=== PATIENT | male | born 1950 | race Caucasian/White ===

== ENCOUNTER 2017-06-23 07:46 | Outpatient (CLI) | payer MEDICARE, OTHER ==
[2017-06-23 13:58] LABS: BASOPHILS # (AUTO) 0.1 10^3/uL (0.0-0.1); EOSINOPHILS # (AUTO) 0.2 10^3/uL (0.0-0.7); EOSINOPHILS % (AUTO) 3.8 %; HCT - HEMATOCRIT 45.7 % (42.0-52.0); HGB - HEMOGLOBIN 15.4 g/dL (14.0-18.0); LYMPHOCYTES # (AUTO) 1.5 10^3/uL (1.5-3.5); LYMPHOCYTES % (AUTO) 22.6 %; MEAN CORPUSCULAR HEMOGLOBIN 30.1 pg (27.0-31.0); MEAN CORPUSCULAR HGB CONC 33.6 g/dL (32.0-36.0); MEAN CORPUSCULAR VOLUME 89.6 fL (80.0-94.0); MEAN PLATELET VOLUME 8.2 fL (7.4-11.4); MONOCYTES # (AUTO) 0.7 10^3/uL (0.0-1.0); MONOCYTES % (AUTO) 10.1 %; NEUTROPHILS # (AUTO) 4.1 10^3/uL (1.5-6.6); NEUTROPHILS % (AUTO) 62.5 %; RED CELL DISTRIBUTION WIDTH 13.3 % (12.0-15.0); UNCORRECTED WHITE BLOOD COUNT 6.5 x10^3/uL; WHITE BLOOD COUNT 6.5 x10^3/uL (4.8-10.8)
[2017-06-23 14:27] LABS: ALBUMIN/GLOBULIN RATIO 1.2 (1.0-2.2); BILIRUBIN,TOTAL 0.8 mg/dL (0.2-1.0); BUN - BLOOD UREA NITROGEN 13 mg/dL (6-20); CALCIUM 9.2 mg/dL (8.5-10.3); CARBON DIOXIDE - CO2 26 mmol/L (21-32); CHLORIDE 104 mmol/L (101-111); CHOL/HDL RATIO 5.7 (<5.0); CHOLESTEROL 218 mg/dL; CREATININE 0.8 mg/dL (0.6-1.2); GFR - MDRD 97 (>89); GLUCOSE 97 mg/dL (70-100); HDL CHOLESTEROL 38 mg/dL; LDL/HDL RATIO 4.1 (<3.6); POTASSIUM 3.9 mmol/L (3.5-5.0); SODIUM 137 mmol/L (135-145); TOTAL PROTEIN 7.4 g/dL (6.7-8.2); TRIGLYCERIDES 115 mg/dL; VLDL CHOLESTEROL 23 mg/dL
[2017-06-23 14:47] LABS: HEMOGLOBIN A1C 0.67 g/dL
== END 2017-06-23 07:47 | disposition home or self-care (01) ==
LOC: LAB.F 07:46
PROVIDERS: ATTEND Family Medicine
DX: Z00.00 Encounter for general adult medical examination without abnormal findings (principal); I10 Essential (primary) hypertension; R73.01 Impaired fasting glucose; E78.5 Hyperlipidemia, unspecified; R97.20 Elevated prostate specific antigen [PSA]
CPT/HCPCS: 36415; 80053; 80061; 83036; 84153; 85025

== ENCOUNTER 2017-06-27 12:42 | Outpatient (CLI) | payer MEDICARE, OTHER ==
[2017-06-27 18:30] LABS: PSA FREE 0.739 ng/mL (0.16-2.81)
[2017-06-27 18:31] LABS: PSA TOTAL 3.825 ng/mL (0.000-2.000)
== END 2017-06-27 12:43 | disposition home or self-care (01) ==
LOC: LAB.F 12:42
PROVIDERS: ATTEND Family Medicine
DX: R97.20 Elevated prostate specific antigen [PSA] (principal)
CPT/HCPCS: 36415; 84154

== ENCOUNTER 2017-08-25 10:21 | Outpatient (CLI) | payer MEDICARE, OTHER ==
[2017-08-25] MEDS ORDERED: BARIUM SULFATE 1,900 ML BOTTLE PO ONE (14:00)
[2017-08-25] MEDS ORDERED: BARIUM SULFATE 1,900 ML BOTTLE PO SCH (14:00)
--- NOTE | 2017-08-25 14:24 | XRAY Report ---
DOUBLE CONTRAST BARIUM ENEMA: 08/25/2017 CLINICAL INDICATION: Colonic polyps, history of rectal bleeding. FINDINGS: Initial marketing manager view of the abdomen demonstrates a normal bowel gas pattern. The barium enem a tip was inserted, the balloon inflated, and double contrast barium enema was performed. The patient had a difficult time retaining the balloon, but a diagnostic study was obtained. The colon is normal in caliber. No fixed polyp or colonic mass is appreciated. Colonic diverticulosis is present. The ce cum appears unremarkable. The appendix opacifies with contrast. IMPRESSION: SCATTERED DIVERTICULOSIS. NO EVIDENCE OF A POLYP OR MASS LESION. FLUOROSCOPY TIME: 8 MINUTES 47 SECONDS; 4 SPOT IMAGES OBTAINED. JOB #: [id number] EXT JOB #:[id number]
== END 2017-08-25 10:22 | disposition home or self-care (01) ==
LOC: DI 10:21
PROVIDERS: ATTEND Family Medicine
DX: K62.5 Hemorrhage of anus and rectum (principal); K57.30 Diverticulosis of large intestine without perforation or abscess without bleeding; Z86.010 Personal history of colon polyps
CPT/HCPCS: 74280; A9270

== ENCOUNTER 2018-07-31 08:07 | Outpatient (CLI) | payer MEDICARE, OTHER | END 2018-07-31 08:08 | disposition home or self-care (01) | LOC: LAB.F 08:07 | PROVIDERS: ATTEND Internal Medicine | DX: E78.5 Hyperlipidemia, unspecified (principal); N40.1 Benign prostatic hyperplasia with lower urinary tract symptoms ==

== ENCOUNTER 2018-08-06 08:04 | Outpatient (CLI) | payer MEDICARE, OTHER ==
[2018-08-06 10:57] LABS: ALBUMIN 3.9 g/dL (3.2-5.5); ALBUMIN/GLOBULIN RATIO 1.3 (1.0-2.2); ALKALINE PHOSPHATASE 49 IU/L (42-121); ALT ALANINE AMINOTRANSFERASE 29 IU/L (10-60); AST ASPARTATE AMINOTRANSFERASE 35 IU/L (10-42); BILIRUBIN,TOTAL 0.9 mg/dL (0.2-1.0); BUN - BLOOD UREA NITROGEN 12 mg/dL (6-20); CALCIUM 9.1 mg/dL (8.5-10.3); CARBON DIOXIDE - CO2 29 mmol/L (21-32); CHLORIDE 103 mmol/L (101-111); CHOL/HDL RATIO 4.6 (<5.0); CHOLESTEROL 210 mg/dL; CREATININE 0.6 mg/dL (0.6-1.2); GFR - MDRD 135 (>89); GLUCOSE 105 mg/dL (70-100); HDL CHOLESTEROL 46 mg/dL; LDL CHOLESTEROL,CALCULATED 146 mg/dL; LDL/HDL RATIO 3.2 (<3.6); SODIUM 139 mmol/L (135-145); VLDL CHOLESTEROL 18 mg/dL
== END 2018-08-06 08:05 | disposition home or self-care (01) ==
LOC: LAB.F 08:04
PROVIDERS: ATTEND Internal Medicine
DX: E78.5 Hyperlipidemia, unspecified (principal); N40.1 Benign prostatic hyperplasia with lower urinary tract symptoms
CPT/HCPCS: 36415; 80053; 80061; 83721; 84153

== ENCOUNTER 2019-06-14 08:34 | Outpatient (CLI) | payer MEDICARE, OTHER ==
[2019-06-14 17:47] LABS: PSA FREE 0.75 ng/mL (0.16-2.81)
[2019-06-14 17:48] LABS: PSA TOTAL 4.41 ng/mL (0.000-2.000)
[2019-06-14 17:59] LABS: HB2 TOTAL 15.6 g/dL; HEMOGLOBIN A1C 0.58 g/dL; HEMOGLOBIN A1C % 5.6 % (4.6-6.2)
== END 2019-06-14 08:35 | disposition home or self-care (01) ==
LOC: LAB.S 08:34
PROVIDERS: ATTEND Physician Assistant Medical
DX: R73.01 Impaired fasting glucose (principal); R97.20 Elevated prostate specific antigen [PSA]; R53.83 Other fatigue
CPT/HCPCS: 36415; 83036; 84153; 84154; 84443

== ENCOUNTER 2019-09-08 06:58 | Outpatient (CLI) | payer MEDICARE, OTHER ==
[2019-09-08 10:49] LABS: BASOPHILS # (AUTO) 0.1 10^3/uL (0.0-0.1); BASOPHILS % (AUTO) 0.9 %; EOSINOPHILS # (AUTO) 0.3 10^3/uL (0.0-0.7); EOSINOPHILS % (AUTO) 3.7 %; HGB - HEMOGLOBIN 16.3 g/dL (14.0-18.0); LYMPHOCYTES # (AUTO) 1.7 10^3/uL (1.5-3.5); LYMPHOCYTES % (AUTO) 25.4 %; MONOCYTES # (AUTO) 0.7 10^3/uL (0.0-1.0); MONOCYTES % (AUTO) 9.8 %; NEUTROPHILS # (AUTO) 4.1 10^3/uL (1.5-6.6); NEUTROPHILS % (AUTO) 59.8 %; PLT - PLATELET COUNT 314 10^3/uL (130-450); RED BLOOD COUNT 5.43 10^6/uL (4.70-6.10); RED CELL DISTRIBUTION WIDTH 12.7 % (12.0-15.0); WHITE BLOOD COUNT 6.8 x10^3/uL (4.8-10.8)
[2019-09-08 10:58] LABS: ALBUMIN 4.2 g/dL (3.2-5.5); ALBUMIN/GLOBULIN RATIO 1.3 (1.0-2.2); BILIRUBIN,TOTAL 0.9 mg/dL (0.2-1.0); CALCIUM 9.1 mg/dL (8.5-10.3); CREATININE 0.6 mg/dL (0.6-1.2); TOTAL PROTEIN 7.5 g/dL (6.7-8.2)
== END 2019-09-08 06:59 | disposition home or self-care (01) ==
LOC: LAB.S 06:58
PROVIDERS: ATTEND Physician Assistant Medical
DX: I10 Essential (primary) hypertension (principal)
CPT/HCPCS: 36415; 80053; 85025

== ENCOUNTER 2020-08-11 07:27 | Outpatient (CLI) | payer MEDICARE, OTHER ==
[2020-08-11 13:35] LABS: BASOPHILS # (AUTO) 0.1 10^3/uL (0.0-0.1); EOSINOPHILS # (AUTO) 0.3 10^3/uL (0.0-0.7); EOSINOPHILS % (AUTO) 4.9 %; HGB - HEMOGLOBIN 15.8 g/dL (14.0-18.0); LYMPHOCYTES # (AUTO) 1.7 10^3/uL (1.5-3.5); LYMPHOCYTES % (AUTO) 27.3 %; MEAN CORPUSCULAR HEMOGLOBIN 31.8 pg (27.0-31.0); MEAN CORPUSCULAR HGB CONC 33.8 g/dL (32.0-36.0); MEAN PLATELET VOLUME 9.7 fL (7.4-11.4); MONOCYTES # (AUTO) 0.6 10^3/uL (0.0-1.0); MONOCYTES % (AUTO) 9.8 %; NEUTROPHILS # (AUTO) 3.5 10^3/uL (1.5-6.6); NEUTROPHILS % (AUTO) 56.7 %; PLT - PLATELET COUNT 332 10^3/uL (130-450); RED BLOOD COUNT 4.97 10^6/uL (4.70-6.10); RED CELL DISTRIBUTION WIDTH 12.3 % (12.0-15.0); WHITE BLOOD COUNT 6.1 x10^3/uL (4.8-10.8)
[2020-08-11 13:43] LABS: ALBUMIN 4.2 g/dL (3.2-5.5); ALBUMIN/GLOBULIN RATIO 1.3 (1.0-2.2); ALKALINE PHOSPHATASE 41 IU/L (42-121); ALT ALANINE AMINOTRANSFERASE 39 IU/L (10-60); AST ASPARTATE AMINOTRANSFERASE 38 IU/L (10-42); BILIRUBIN,TOTAL 0.8 mg/dL (0.2-1.0); BUN - BLOOD UREA NITROGEN 11 mg/dL (6-20); CALCIUM 9.4 mg/dL (8.5-10.3); CARBON DIOXIDE - CO2 25 mmol/L (21-32); CHLORIDE 103 mmol/L (101-111); CHOL/HDL RATIO 4.9 (<5.0); CHOLESTEROL 221 mg/dL; CREATININE 0.7 mg/dL (0.6-1.2); GLUCOSE 108 mg/dL (70-100); HDL CHOLESTEROL 45 mg/dL; LDL CHOLESTEROL,CALCULATED 148 mg/dL; LDL/HDL RATIO 3.3 (<3.6); SODIUM 136 mmol/L (135-145); TOTAL PROTEIN 7.5 g/dL (6.7-8.2); VLDL CHOLESTEROL 28 mg/dL
== END 2020-08-11 07:28 | disposition home or self-care (01) ==
LOC: LAB.S 07:27
PROVIDERS: ATTEND Physician Assistant
DX: R73.01 Impaired fasting glucose (principal); R97.20 Elevated prostate specific antigen [PSA]; R07.89 Other chest pain; E78.5 Hyperlipidemia, unspecified; I10 Essential (primary) hypertension
CPT/HCPCS: 36415; 80053; 80061; 83721; 84153; 84443; 85025

== ENCOUNTER 2020-09-07 07:43 | Outpatient (CLI) | payer MEDICARE, OTHER ==
--- NOTE | 2020-09-07 11:31 | CARDIAC PROCEDURE NOTE ---
DATE OF SERVICE: 09/07/2020 Physician: Humaira Wood MD, [facility] INDICATION: Chest pain, family history of CAD. CARDIAC RISK FACTORS: Male gender, hypertension, elevated cholesterol, family history of heart disease, smoker, borderline diabetic. DESCRIPTION OF PROCEDURE: After signing informed consent, the patient underwent a Prateek-protocol treadmill stress test with Echo imaging at rest and post- exercise. RESTING HEART RATE: 71. PEAK HEART RATE: 152 (100% predicted maximum heart rate for age). RESTING BLOOD PRESSURE: 150/94. PEAK BLOOD PRESSURE: 205/96 (Patient did not take a morning BP med). The patient exercised for 7 minutes and 15 seconds on a Prateek-protocol treadmill stress test. He achieved a peak heart rate of 152 (100% PMHR) and 9.1 METs. The patient had no chest pain with exercise, reported mild to moderate shortness of breath at peak, and rated his perceived exertion at 16/20 on the Mavis scale at peak. Oxygen saturation was 94% to 98% on room air throughout the test. RESTING EKG: Normal sinus rhythm, left atrial enlargement, early R/S transition. EKG AT PEAK: T-wave flattening develops after 1 minute of exercise, in leads V2 and V3. Then horizontal ST depressions of 1 mm, are seen at peak in leads V2 through V4. All changes revert to baseline after 5 minutes of recovery. SUMMARY: 1. Abnormal resting EKG. 2. Fair exercise tolerance. 3. Abnormal ST segment changes and T-wave changes in the anterior leads develop and are suggestive of ischemia. 4. Echo images reported separately and showed: Normal LV wall motion at rest. LVEF 65%. After exercise, there was normal augmentation of all LV segments. IMPRESSION: Normal treadmill exercise stress test with Echo. RECOMMENDATIONS: 1. Aggressive risk-factor management: better BP control, cholesterol control, diabetic control and consider taking a baby aspirin daily. cc: Charlette Francis PA-C TD: 09/07/2020 11:14 MTDBrice
== END 2020-09-07 07:44 | disposition home or self-care (01) ==
LOC: DI 07:43
PROVIDERS: ATTEND Physician Assistant
DX: R07.9 Chest pain, unspecified (principal); R94.31 Abnormal electrocardiogram [ECG] [EKG]; Z82.49 Family history of ischemic heart disease and other diseases of the circulatory system
CPT/HCPCS: 93350

== ENCOUNTER 2021-06-13 08:00 | Outpatient (CLI) | payer MEDICARE, OTHER ==
--- NOTE | 2021-06-13 15:28 | XRAY Report ---
PROCEDURE: Tib/Fib RT INDICATIONS: CONTUSION OF RIGHT LOWER LEG TECHNIQUE: 4 views of the tibia and fibula were acquired. COMPARISON: Right knee radiographs 01/03/2014. FINDINGS: Bones: No acute fractures or dislocations. No suspicious bony lesions. Soft tissues: Focal soft tissue edema is seen anterior to the proximal tibia. Subcutaneous edema is s een throughout the proximal portion of the lower leg. A few nonspecific subcutaneous soft tissue calc ifications are present IMPRESSION: No acute osseous abnormality. Soft tissue edema is seen at the proximal portion of the right lower le g. If there is clinical concern or persistent symptoms, additional imaging such as repeat radiographs or advanced imaging (e.g. CT, MRI) may be helpful for further evaluation. Reviewed by: Jamie Hines MD on 06/13/2021 3:27 PM PDT Approved by: Jamie Hines MD on 06/13/2021 3:27 PM PDT Station ID: [id number]
== END 2021-06-13 23:59 | disposition home or self-care (01) ==
LOC: DI.S 08:00
PROVIDERS: ATTEND Physician Assistant Medical
DX: S80.11XA Contusion of right lower leg, initial encounter (principal)

== ENCOUNTER 2021-08-31 10:03 | Outpatient (CLI) | payer MEDICARE, OTHER | END 2021-08-31 10:04 | disposition home or self-care (01) | LOC: LAB.S 10:03 | PROVIDERS: ATTEND Internal Medicine | DX: C61 Malignant neoplasm of prostate (principal) | CPT/HCPCS: 36415; 84153 ==

== ENCOUNTER 2022-07-19 09:06 | Outpatient (CLI) | payer MEDICARE, OTHER ==
[2022-07-19 14:39] LABS: ABSOLUTE RETICS # AUTO 0.069 10^6/uL (0.020-0.110); BASOPHILS # (AUTO) 0.1 10^3/uL (0.0-0.1); BASOPHILS % (AUTO) 1.2 %; EOSINOPHILS # (AUTO) 0.2 10^3/uL (0.0-0.7); EOSINOPHILS % (AUTO) 3.7 %; HCT - HEMATOCRIT 45.1 % (42.0-52.0); LYMPHOCYTES # (AUTO) 1.1 10^3/uL (1.5-3.5); MEAN CORPUSCULAR HEMOGLOBIN 30.8 pg (27.0-31.0); MEAN CORPUSCULAR HGB CONC 33.3 g/dL (32.0-36.0); MEAN CORPUSCULAR VOLUME 92.6 fL (80.0-94.0); MEAN PLATELET VOLUME 10.1 fL (7.4-11.4); MONOCYTES # (AUTO) 0.5 10^3/uL (0.0-1.0); MONOCYTES % (AUTO) 9.3 %; NEUTROPHILS # (AUTO) 3.3 10^3/uL (1.5-6.6); NEUTROPHILS % (AUTO) 64.4 %; PLT - PLATELET COUNT 348 10^3/uL (130-450); RED BLOOD COUNT 4.87 10^6/uL (4.70-6.10); RED CELL DISTRIBUTION WIDTH 12.4 % (12.0-15.0); RETICULOCYTE COUNT % (AUTO) 1.41 % (0.5-2.3); WHITE BLOOD COUNT 5.2 x10^3/uL (4.8-10.8)
[2022-07-19 15:16] LABS: FERRITIN 76.3 ng/mL (23.9-336.2)
[2022-07-19 15:19] LABS: % IRON SATURATION 39 % (20-50); IRON 122 ug/dL (45-182); TOTAL IRON BINDING CAPACITY 316 ug/dL (250-450); TRANSFERRIN 226 mg/dL (180-329)
== END 2022-07-19 09:07 | disposition home or self-care (01) ==
LOC: LAB.S 09:06
PROVIDERS: ATTEND Registered Nurse
DX: G25.3 Myoclonus (principal)
CPT/HCPCS: 36415; 82607; 82728; 82746; 83540; 84466; 85025; 85045

== ENCOUNTER 2022-08-03 13:38 | Outpatient (CLI) | payer MEDICARE, OTHER ==
--- NOTE | 2022-08-04 09:10 | CT Report ---
PROCEDURE: CT brain without contrast INDICATIONS: MUSCLE JERKS IN SLEEP, CERVICAL SPONDYLOSIS TECHNIQUE: Noncontrast 4.5 mm thick angled axial sections acquired from the foramen magnum to the ve rtex. For radiation dose reduction, the following was used: automated exposure control, adjustment of mA and/or kV according to patient size. COMPARISON: None. FINDINGS: Image quality: Excellent. CSF spaces: Basal cisterns are patent. No extra-axial fluid collections. Ventricles are normal in size and shape. Brain: No midline shift. No intracranial masses or hemorrhage. Mullins-white matter interface is norm al. Skull and face: Calvarium and visualized facial bones are intact, without suspicious lesions. Sinuses: Visualized sinuses and mastoids are clear. IMPRESSION: Unremarkable CT of the brain Reviewed by: Steven Geller MD on 08/04/2022 8:09 AM [facility] Approved by: Steven Geller MD on 08/04/2022 8:09 AM [facility] Station ID: [id number]
== END 2022-08-03 13:39 | disposition home or self-care (01) ==
LOC: DI 13:38
PROVIDERS: ATTEND Registered Nurse
DX: G25.3 Myoclonus (principal); M99.61 Osseous and subluxation stenosis of intervertebral foramina of cervical region; R20.0 Anesthesia of skin; M47.812 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radiculopathy, cervical region

== ENCOUNTER 2022-08-05 12:59 | Outpatient (CLI) | payer MEDICARE, OTHER ==
--- NOTE | 2022-08-05 17:36 | MRI Report ---
PROCEDURE: CERVICAL SPINE WO INDICATIONS: MUSCLE JERKS IN SLEEP, CERVICAL SPONDYLOSIS TECHNIQUE: Noncontrast sagittal T1 spin echo and T2 fast spin echo, sagittal STIR, foraminal oblique sagittal T2 fast spin echo, and axial gradient echo or T2 fast spin echo through the cervical spine. COMPARISON: Cervical spine radiograph 05/21/2022 FINDINGS: Image quality: Slightly motion degraded Alignment: Trace anterolisthesis of C5 on C6 and C6 on C7. Marrow: No acute fracture. Multilevel disc desiccation. Cord: No myelopathic cord signal Soft tissues: No paravertebral mass or fluid collection. Specific levels: C2-C3: No stenosis. C3-C4: Mild uncovertebral arthropathy. No central narrowing. Mild to moderate left foraminal narrowin g. C4-C5: Small posterior disc osteophyte complex. Mild central narrowing. Mild bilateral neural foramin al narrowing. C5-C6: Small posterior disc osteophyte complex. Uncovertebral and facet arthropathy. Mild to moderate central narrowing. Moderate right and mild left neural foraminal narrowing. Ligamentum flavum hypert rophy. C6-C7: Posterior disc osteophyte complex. Mild central narrowing. Uncovertebral and facet arthropathy . Moderate right and moderate to severe left neural foraminal narrowing. Ligamentum flavum hypertroph y. C7-T1: No stenosis. IMPRESSION: Moderate overall spondylosis as described above with multilevel spondylolisthesis. Reviewed by: Yusuf Allen MD on 08/05/2022 5:35 PM PST Approved by: Yusuf Allen MD on 08/05/2022 5:35 PM PST Station ID: [id number]
== END 2022-08-05 13:00 | disposition home or self-care (01) ==
LOC: DI 12:59
PROVIDERS: ATTEND Registered Nurse
DX: M47.812 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radiculopathy, cervical region (principal); M43.12 Spondylolisthesis, cervical region

== ENCOUNTER 2022-09-22 11:36 | Emergency (ER) | payer MEDICARE, OTHER ==
[2022-09-22 12:06] LABS: BASOPHILS # (AUTO) 0.1 10^3/uL (0.0-0.1); BASOPHILS % (AUTO) 0.4 %; EOSINOPHILS # (AUTO) 0.1 10^3/uL (0.0-0.7); HCT - HEMATOCRIT 42.1 % (42.0-52.0); HGB - HEMOGLOBIN 14.3 g/dL (14.0-18.0); LYMPHOCYTES # (AUTO) 1.1 10^3/uL (1.5-3.5); MEAN CORPUSCULAR HEMOGLOBIN 31.2 pg (27.0-31.0); MEAN CORPUSCULAR VOLUME 91.7 fL (80.0-94.0); MEAN PLATELET VOLUME 9.1 fL (7.4-11.4); MONOCYTES # (AUTO) 1.3 10^3/uL (0.0-1.0); MONOCYTES % (AUTO) 9.7 %; NEUTROPHILS # (AUTO) 11.1 10^3/uL (1.5-6.6); NEUTROPHILS % (AUTO) 80.5 %; PLT - PLATELET COUNT 333 10^3/uL (130-450); RED BLOOD COUNT 4.59 10^6/uL (4.70-6.10); RED CELL DISTRIBUTION WIDTH 12.2 % (12.0-15.0); WHITE BLOOD COUNT 13.8 x10^3/uL (4.8-10.8)
[2022-09-22 12:13] LABS: BILIRUBIN,URINE NEGATIVE (NEGATIVE); GLUCOSE, URINE (UA) NEGATIVE (NEGATIVE); KETONES,URINE (UA) NEGATIVE (NEGATIVE); LEUKOCYTE ESTERASE, URINE NEGATIVE (NEGATIVE); NITRITE,URINE NEGATIVE (NEGATIVE); OCCULT BLOOD,URINE TRACE-INTA (NEGATIVE); PH,URINE 7.5 PH (5.0-7.5); PROTEIN,URINE NEGATIVE (NEGATIVE); UROBILINOGEN,URINE 0.2 (NORMAL) E.U./dL (NORMAL)
[2022-09-22 12:15] LABS: ALBUMIN 3.9 g/dL (3.2-5.5); ALBUMIN/GLOBULIN RATIO 1.1 (1.0-2.2); BILIRUBIN,TOTAL 0.8 mg/dL (0.2-1.0); CREATININE 0.8 mg/dL (0.6-1.2); POTASSIUM 3.9 mmol/L (3.5-5.0); TOTAL PROTEIN 7.6 g/dL (6.7-8.2)
[2022-09-22 12:34] LABS: CLARITY,URINE CLEAR (CLEAR)
--- OUTSIDE RECORDS SUMMARY | 2022-09-22 12:35 | EXTERNAL MEDICAL SUMMARY RPT | Continuity of Care Document ---
:1950 Author Organization [facility] Address [address] [place] [address] Phone Care Team Providers Name Role Phone Unavailable Unavailable Unavailable Katie Hou Unavailable Unavailable Allergies No information. Encounters No information. Functional Status No information. Immunizations No information. Medications date description facility 2022-08-07 00:00 nirmatrelvir-ritonavir [facility] 2022-07-17 00:00 NORTRIPTYLINE HCL [facility] jag 2022-07-19 00:00 NORTRIPTYLINE HCL [facility] jag 2022-07-20 00:00 NORTRIPTYLINE HCL [facility] C jag 2022-07-28 00:00 NORTRIPTYLINE HCL [facility] C jga 2022-07-31 00:00 NORTRIPTYLINE HCL [facility] jag 2022-08-05 00:00 NORTRIPTYLINE HCL [facility] C jag 2022-08-07 00:00 NORTRIPTYLINE HCL [facility] C jag 2022-08-08 00:00 NORTRIPTYLINE HCL [facility] C jag 2022-08-13 00:00 NORTRIPTYLINE HCL [facility] jag 2022-08-14 00:00 NORTRIPTYLINE HCL [facility] C jag 2022-07-17 00:00 MULTIPLE VITAMIN [facility] jag 2022-07-19 00:00 MULTIPLE VITAMIN [facility] C jag 2022-07-20 00:00 MULTIPLE VITAMIN [facility] C jag 2022-07-28 00:00 MULTIPLE VITAMIN [facility] C jag 2022-07-31 00:00 MULTIPLE VITAMIN [facility] C jag 2022-08-05 00:00 MULTIPLE VITAMIN [facility] C jag 2022-08-07 00:00 MULTIPLE VITAMIN [facility] C jag 2022-08-08 00:00 MULTIPLE VITAMIN [facility] C jag 2022-08-13 00:00 MULTIPLE VITAMIN [facility] C jag 2022-08-14 00:00 MULTIPLE VITAMIN [facility] C jag 2022-07-17 00:00 GLUCOSAMINE SULFATE [facility] C jag 2022-07-19 00:00 GLUCOSAMINE SULFATE [facility] C jag 2022-07-20 00:00 GLUCOSAMINE SULFATE [facility] C jag 2022-07-28 00:00 GLUCOSAMINE SULFATE [facility] C jga 2022-07-31 00:00 GLUCOSAMINE SULFATE [facility] C jag 2022-08-05 00:00 GLUCOSAMINE SULFATE [facility] C jag 2022-08-07 00:00 GLUCOSAMINE SULFATE [facility] C jag 2022-08-08 00:00 GLUCOSAMINE SULFATE [facility] C jag 2022-08-13 00:00 GLUCOSAMINE SULFATE [facility] C jag 2022-08-14 00:00 GLUCOSAMINE SULFATE [facility] C jag 2022 00:00 sodium,potassium,mag sulfates [facility] jag 2022-08-07 00:00 nirmatrelvir-ritonavir [facility] C jag 2022-07-17 00:00 GLUCOSAMINE SULFATE [facility] C jag 2022-07-19 00:00 GLUCOSAMINE SULFATE [facility] C jag 2022-07-20 00:00 GLUCOSAMINE SULFATE [facility] C jag 2022-07-28 00:00 GLUCOSAMINE SULFATE [facility] C jag 2022-07-31 00:00 GLUCOSAMINE SULFATE [facility] C jag 2022-08-05 00:00 GLUCOSAMINE SULFATE [facility] C jag 2022-08-07 00:00 GLUCOSAMINE SULFATE [facility] C jag 2022-08-08 00:00 GLUCOSAMINE SULFATE [facility] C jag 2022-08-13 00:00 GLUCOSAMINE SULFATE [facility] C jag 2022-08-14 00:00 GLUCOSAMINE SULFATE [facility] C jag 2022-07-17 00:00 MULTIPLE VITAMIN [facility] C jag 2022-07-19 00:00 MULTIPLE VITAMIN [facility] C jag 2022-07-20 00:00 MULTIPLE VITAMIN [facility] C jag 2022-07-28 00:00 MULTIPLE VITAMIN [facility] C jag 2022-07-31 00:00 MULTIPLE VITAMIN [facility] C jag 2022-08-05 00:00 MULTIPLE VITAMIN [facility] C jag 2022-08-07 00:00 MULTIPLE VITAMIN [facility] C jag 2022-08-08 00:00 MULTIPLE VITAMIN [facility] C jag 2022-08-13 00:00 MULTIPLE VITAMIN [facility] C jag 2022-08-14 00:00 MULTIPLE VITAMIN [facility] C jag 2022-07-17 00:00 NORTRIPTYLINE HCL [facility] C jag 2022-07-19 00:00 NORTRIPTYLINE HCL [facility] C jag 2022-07-20 00:00 NORTRIPTYLINE HCL [facility] C jag 2022-07-28 00:00 NORTRIPTYLINE HCL [facility] C jag 2022-07-31 00:00 NORTRIPTYLINE HCL [facility] C jag 2022-08-05 00:00 NORTRIPTYLINE HCL [facility] C jag 2022-08-07 00:00 NORTRIPTYLINE HCL [facility] C jag 2022-08-08 00:00 NORTRIPTYLINE HCL [facility] C jag 2022-08-13 00:00 NORTRIPTYLINE HCL [facility] C jag 2022-08-14 00:00 NORTRIPTYLINE HCL [facility] C jag 2022 00:00 sodium,potassium,mag sulfates [facility] jag 2022-07-17 00:00 SPECIALTY VITAMINS PRODUCTS [facility] C jag 2022-07-19 00:00 SPECIALTY VITAMINS PRODUCTS [facility] C jag 2022-07-20 00:00 SPECIALTY VITAMINS PRODUCTS [facility] C jag 2022-07-28 00:00 SPECIALTY VITAMINS PRODUCTS [facility] C jag 2022-07-31 00:00 SPECIALTY VITAMINS PRODUCTS [facility] C jag 2022-08-05 00:00 SPECIALTY VITAMINS PRODUCTS [facility] C jag 2022-08-07 00:00 SPECIALTY VITAMINS PRODUCTS [facility] C jag 2022-08-08 00:00 SPECIALTY VITAMINS PRODUCTS [facility] C jag 2022-08-13 00:00 SPECIALTY VITAMINS PRODUCTS [facility] C jag 2022-08-14 00:00 SPECIALTY VITAMINS PRODUCTS [facility] C jag 2022-07-17 00:00 SPECIALTY VITAMINS PRODUCTS [facility] C jag 2022-07-19 00:00 SPECIALTY VITAMINS PRODUCTS [facility] C jag 2022-07-20 00:00 SPECIALTY VITAMINS PRODUCTS [facility] C jag 2022-07-28 00:00 SPECIALTY VITAMINS PRODUCTS [facility] C jag 2022-07-31 00:00 SPECIALTY VITAMINS PRODUCTS [facility] C jag 2022-08-05 00:00 SPECIALTY VITAMINS PRODUCTS [facility] C jag 2022-08-07 00:00 SPECIALTY VITAMINS PRODUCTS [facility] C ajg 2022-08-08 00:00 SPECIALTY VITAMINS PRODUCTS [facility] C jag 2022-08-13 00:00 SPECIALTY VITAMINS PRODUCTS [facility] C jag 2022-08-14 00:00 SPECIALTY VITAMINS PRODUCTS [facility] C jag 2022-08-07 00:00 nirmatrelvir-ritonavir [facility] C jag 2022-07-17 00:00 VITAMINS-LIPOTROPICS [facility] C jag 2022-07-19 00:00 VITAMINS-LIPOTROPICS [facility] C jag 2022-07-20 00:00 VITAMINS-LIPOTROPICS [facility] C jag 2022-07-28 00:00 VITAMINS-LIPOTROPICS [facility] C jag 2022-07-31 00:00 VITAMINS-LIPOTROPICS [facility] C jag 2022-08-05 00:00 VITAMINS-LIPOTROPICS [facility] C jag 2022-08-07 00:00 VITAMINS-LIPOTROPICS [facility] C jag 2022-08-08 00:00 VITAMINS-LIPOTROPICS [facility] C jag 2022-08-13 00:00 VITAMINS-LIPOTROPICS [facility] C jag 2022-08-14 00:00 VITAMINS-LIPOTROPICS [facility] C jag 2022-07-17 00:00 NORTRIPTYLINE HCL [facility] C jag 2022-07-19 00:00 NORTRIPTYLINE HCL [facility] C jag 2022-07-20 00:00 NORTRIPTYLINE HCL [facility] C jag 2022-07-28 00:00 NORTRIPTYLINE HCL [facility] C jag 2022-07-31 00:00 NORTRIPTYLINE HCL [facility] C jag 2022-08-05 00:00 NORTRIPTYLINE HCL [facility] C jag 2022-08-07 00:00 NORTRIPTYLINE HCL [facility] C jag 2022-08-08 00:00 NORTRIPTYLINE HCL [facility] C jag 2022-08-13 00:00 NORTRIPTYLINE HCL [facility] C jag 2022-08-14 00:00 NORTRIPTYLINE HCL [facility] C jag 2022-07-17 00:00 METAXALONE [facility] C jag 2022-07-19 00:00 METAXALONE [facility] C jag 2022-07-20 00:00 METAXALONE [facility] C jag 2022-07-28 00:00 METAXALONE [facility] C jag 2022-07-31 00:00 METAXALONE [facility] C jag 2022-08-05 00:00 METAXALONE [facility] C jag 2022-08-07 00:00 METAXALONE [facility] C jag 2022-08-08 00:00 METAXALONE [facility] C jag 2022-08-13 00:00 METAXALONE [facility] C jag 2022-08-14 00:00 METAXALONE [facility] C jag 2022-07-17 00:00 GLUCOSAMINE SULFATE [facility] C jag 2022-07-19 00:00 GLUCOSAMINE SULFATE [facility] C jag 2022-07-20 00:00 GLUCOSAMINE SULFATE [facility] C jag 2022-07-28 00:00 GLUCOSAMINE SULFATE [facility] C jag 2022-07-31 00:00 GLUCOSAMINE SULFATE [facility] C jag 2022-08-05 00:00 GLUCOSAMINE SULFATE [facility] C jag 2022-08-07 00:00 GLUCOSAMINE SULFATE [facility] C jag 2022-08-08 00:00 GLUCOSAMINE SULFATE [facility] C jag 2022-08-13 00:00 GLUCOSAMINE SULFATE [facility] C jag 2022-08-14 00:00 GLUCOSAMINE SULFATE [facility] C jag 2022 00:00 sodium,potassium,mag sulfates [facility] C jag 2022 00:00 sodium,potassium,mag sulfates [facility] C jag 2022-07-17 00:00 NORTRIPTYLINE HCL [facility] C jag 2022-07-19 00:00 NORTRIPTYLINE HCL [facility] C jag 2022-07-20 00:00 NORTRIPTYLINE HCL [facility] C jag 2022-07-28 00:00 NORTRIPTYLINE HCL [facility] C jag 2022-07-31 00:00 NORTRIPTYLINE HCL [facility] C jag 2022-08-05 00:00 NORTRIPTYLINE HCL [facility] C jag 2022-08-07 00:00 NORTRIPTYLINE HCL [facility] C jag 2022-08-08 00:00 NORTRIPTYLINE HCL [facility] C jag 2022-08-13 00:00 NORTRIPTYLINE HCL [facility] C jag 2022-08-14 00:00 NORTRIPTYLINE HCL [facility] C jag 2022-07-17 00:00 METAXALONE [facility] C jag 2022-07-19 00:00 METAXALONE [facility] C jag 2022-07-20 00:00 METAXALONE [facility] C jag 2022-07-28 00:00 METAXALONE [facility] C jag 2022-07-31 00:00 METAXALONE [facility] C jag 2022-08-05 00:00 METAXALONE [facility] C jag 2022-08-07 00:00 METAXALONE [facility] C jag 2022-08-08 00:00 METAXALONE [facility] C jag 2022-08-13 00:00 METAXALONE [facility] C jag 2022-08-14 00:00 METAXALONE [facility] C jag 2022-07-17 00:00 VITAMINS-LIPOTROPICS [facility] C jag 2022-07-19 00:00 VITAMINS-LIPOTROPICS [facility] C jag 2022-07-20 00:00 VITAMINS-LIPOTROPICS [facility] C jag 2022-07-28 00:00 VITAMINS-LIPOTROPICS [facility] C jag 2022-07-31 00:00 VITAMINS-LIPOTROPICS [facility] C jag 2022-08-05 00:00 VITAMINS-LIPOTROPICS [facility] C jag 2022-08-07 00:00 VITAMINS-LIPOTROPICS [facility] C jag 2022-08-08 00:00 VITAMINS-LIPOTROPICS [facility] C jag 2022-08-13 00:00 VITAMINS-LIPOTROPICS [facility] C jag 2022-08-14 00:00 VITAMINS-LIPOTROPICS [facility] C jag 2022-07-17 00:00 METAXALONE [facility] C jag 2022-07-19 00:00 METAXALONE [facility] C jag 2022-07-20 00:00 METAXALONE [facility] C jag 2022-07-28 00:00 METAXALONE [facility] C jag 2022-07-31 00:00 METAXALONE [facility] C jag 2022-08-05 00:00 METAXALONE [facility] C jag 2022-08-07 00:00 METAXALONE [facility] C jag 2022-08-08 00:00 METAXALONE [facility] C jag 2022-08-13 00:00 METAXALONE [facility] C jag 2022-08-14 00:00 METAXALONE [facility] C jag 2022-07-17 00:00 MULTIPLE VITAMIN [facility] C jag 2022-07-19 00:00 MULTIPLE VITAMIN [facility] C jag 2022-07-20 00:00 MULTIPLE VITAMIN [facility] C jag 2022-07-28 00:00 MULTIPLE VITAMIN [facility] C jag 2022-07-31 00:00 MULTIPLE VITAMIN [facility] C jag 2022-08-05 00:00 MULTIPLE VITAMIN [facility] C jag 2022-08-07 00:00 MULTIPLE VITAMIN [facility] C jag 2022-08-08 00:00 MULTIPLE VITAMIN [facility] C jag 2022-08-13 00:00 MULTIPLE VITAMIN [facility] C jag 2022-08-14 00:00 MULTIPLE VITAMIN [facility] C jag 2022-07-17 00:00 SPECIALTY VITAMINS PRODUCTS [facility] C jag 2022-07-19 00:00 SPECIALTY VITAMINS PRODUCTS [facility] C jag 2022-07-20 00:00 SPECIALTY VITAMINS PRODUCTS [facility] C jag 2022-07-28 00:00 SPECIALTY VITAMINS PRODUCTS [facility] C jag 2022-07-31 00:00 SPECIALTY VITAMINS PRODUCTS [facility] C jag 2022-08-05 00:00 SPECIALTY VITAMINS PRODUCTS [facility] C jag 2022-08-07 00:00 SPECIALTY VITAMINS PRODUCTS [facility] C jag 2022-08-08 00:00 SPECIALTY VITAMINS PRODUCTS [facility] in [facility] C jag 2022-08-13 00:00 SPECIALTY VITAMINS PRODUCTS Walk[facility] in [facility] C jag 2022-08-14 00:00 SPECIALTY VITAMINS PRODUCTS Walk[facility] in [facility] C jag 2022-07-17 00:00 VITAMINS-LIPOTROPICS [facility] C jag 2022-07-19 00:00 VITAMINS-LIPOTROPICS [facility] C jag 2022-07-20 00:00 VITAMINS-LIPOTROPICS [facility] C jag 2022-07-28 00:00 VITAMINS-LIPOTROPICS [facility] C jag 2022-07-31 00:00 VITAMINS-LIPOTROPICS [facility] C jag 2022-08-05 00:00 VITAMINS-LIPOTROPICS [facility] C jag 2022-08-07 00:00 VITAMINS-LIPOTROPICS [facility] C jag 2022-08-08 00:00 VITAMINS-LIPOTROPICS [facility] C jag 2022-08-13 00:00 VITAMINS-LIPOTROPICS [facility] C jag 2022-08-14 00:00 VITAMINS-LIPOTROPICS [facility] C jag 2022-07-17 00:00 METAXALONE [facility] C jag 2022-07-19 00:00 METAXALONE [facility] C jag 2022-07-20 00:00 METAXALONE [facility] C jag 2022-07-28 00:00 METAXALONE [facility] C jag 2022-07-31 00:00 METAXALONE [facility] C jag 2022-08-05 00:00 METAXALONE [facility] C jag 2022-08-07 00:00 METAXALONE [facility] C jag 2022-08-08 00:00 METAXALONE [facility] C jag 2022-08-13 00:00 METAXALONE [facility] C jag 2022-08-14 00:00 METAXALONE [facility] C jag 2022-07-17 00:00 GLUCOSAMINE SULFATE [facility] [facility] C jag 2022-07-19 00:00 GLUCOSAMINE SULFATE [facility] [place] [facility] C jag 2022-07-20 00:00 GLUCOSAMINE SULFATE [facility] [place] [facility] C jag 2022-07-28 00:00 GLUCOSAMINE SULFATE [facility] [place] [facility] C jag 2022-07-31 00:00 GLUCOSAMINE SULFATE [facility] [facility] C jag 2022-08-05 00:00 GLUCOSAMINE SULFATE [facility] [place] [facility] C jag 2022-08-07 00:00 GLUCOSAMINE SULFATE [facility] [place] [facility] C jag 2022-08-08 00:00 GLUCOSAMINE SULFATE [facility] C jag 2022-08-13 00:00 GLUCOSAMINE SULFATE [facility] [place] [facility] C jag 2022-08-14 00:00 GLUCOSAMINE SULFATE [facility] [place] [facility] fowlerjag Problems date description facility 2022-07-17 00:00 Depressive disorder, not elsewhere [facility] 2022-07-17 00:00 Depressive disorder [facility] [place] [facility] 2022-07-17 00:00 Hypertensive disorder [facility] fowlerjag 2022-07-17 00:00 Benign essential hypertension [facility] 2022-07-17 00:00 Unspecified essential hypertension [facility] 2022-07-17 00:00 Major depressive disorder, single [facility] & episode, unspecified Anc[facility] Services [place] 2022-07-17 00:00 Essential (primary) hypertension [facility] 2022-07-19 00:00 Depressive disorder, not elsewhere [facility] classified [facility] 2022-07-19 00:00 Osseous and subluxation stenosis of Wa [facility]k-In [facility] Primary Care & cervical intervertebral foramina Ancilla ry Services [place] 2022-07-19 00:00 Depressive disorder [facility] [place] [facility] 2022-07-19 00:00 Hypertensive disorder Walk[facility] & Ancillary Services [facility] 2022-07-19 00:00 Cervical spondylosis Walk[facility] & Ancillary Services [facility] 2022-07-19 00:00 Benign essential hypertension [facility] 2022-07-19 00:00 Unspecified essential hypertension [facility] 2022-07-19 00:00 Cervical spondylosis without [facility]In [facility] Primary Care & myelopathy Ancillary Services [facility] 2022-07-19 00:00 Spinal stenosis of cervical region [facility] 2022-07-19 00:00 Major depressive disorder, single [facility] Care & episode, unspecified Anc[facility] Services [place] 2022-07-19 00:00 Essential (primary) hypertension [facility] Services [facility] 2022-07-19 00:00 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[facility] & radiculopathy, cervical region [facility] [place] 2022-07-19 00:00 Osseous and subluxation stenosis of Wa lk-In [facility] Primary Care & intervertebral foramina of cervical Anci llary Services [facility] 2022-07-20 00:00 Depressive disorder, not elsewhere [facility] & classified Ancillary Services [facility] 2022-07-20 00:00 Depressive disorder [facility] [place] [facility] 2022-07-20 00:00 Hypertensive disorder Walk[facility] & Ancillary Services [facility] 2022-07-20 00:00 Benign essential hypertension [facility] Anc[facility] Services [facility] 2022-07-20 00:00 Unspecified essential hypertension [facility] 2022-07-20 00:00 Major depressive disorder, single [facility] Care & episode, unspecified Anc[facility] Services [place] 2022-07-20 00:00 Essential (primary) hypertension [facility] [facility]28 [facility]:00 Depressive disorder, not elsewhere [facility] classified Anc[facility] Services [place] 2022-07-28 00:00 Depressive disorder Walk[facility]In [facility] Care & Ancillary Services [facility] 2022-07-28 00:00 Hypertensive disorder [facility] Care & [facility] Services [facility] 2022-07-28 00:00 Benign essential hypertension [facility] Primary Care & Ancillary Services [facility] 2022-07-28 00:00 Unspecified essential hypertension [facility] 2022-07-28 00:00 Major depressive disorder, single [facility] Primary Care & episode, unspecified Ancillary Services [place] 2022-07-28 00:00 Essential (primary) hypertension [facility] Primary Care & Ancillary Services jag 2022-07-31 00:00 Depressive disorder, not elsewhere [facility] classified [facility] 2022-07-31 00:00 Depressive disorder Walk[facility]In Clinic [facility] Care & Ancillary Services jag 2022-07-31 00:00 Hypertensive disorder [facility] Care & Ancillary Services jag 2022-07-31 00:00 Benign essential hypertension [facility] Primary Care & Ancillary Services [facility] 2022-07-31 00:00 Unspecified essential hypertension [facility] 2022-07-31 00:00 Major depressive disorder, single [facility] Primary Care & episode, unspecified Ancillary Services [place] 2022-07-31 00:00 Essential (primary) hypertension [facility] Primary Care & Ancillary Services [facility] 2022-08-05 00:00 Depressive disorder, not elsewhere [facility] classified [facility] Services [place] fowlerjag 2022-08-05 00:00 Depressive disorder [facility] & [facility] Services C jag 2022-08-05 00:00 Hypertensive disorder [facility] Care & Ancillary Services C jag 2022-08-05 00:00 Benign essential hypertension [facility] Primary Care & Ancillary Services C jag 2022-08-05 00:00 Unspecified essential hypertension [facility] Services C jag 2022-08-05 00:00 Major depressive disorder, single Walk [facility] Primary Care & episode, unspecified Ancillary Services [place] 2022-08-05 00:00 Essential (primary) hypertension [facility] Primary Care & Ancillary Services [facility] 2022-08-07 00:00 Acute COVID-19 [facility]In [facility] Care & Ancillary Services [facility] 2022-08-07 00:00 Depressive disorder, not elsewhere [facility] classified [facility] Services [place] 2022-08-07 00:00 Depressive disorder [facility] 2022-08-07 00:00 Hypertensive disorder [facility] & [facility] Services [place] 2022-08-07 00:00 Fever [facility] Care & Ancillary Services [place] 2022-08-07 00:00 Benign essential hypertension [facility] Primary Care & Ancillary Services [facility] 2022-08-07 00:00 Unspecified essential hypertension [facility] [place] 2022-08-07 00:00 Major depressive disorder, single [facility] Primary Care & episode, unspecified Ancillary Services [place] 2022-08-07 00:00 Essential (primary) hypertension [facility] Primary [facility] & Ancillary Services [facility] [place] 2022-08-07 00:00 Fever, unspecified [facility] Care & Ancillary Services [facility] [place] 2022-08-07 00:00 COVID-19 [facility] & Ancillary Services [place] 2022-08-08 00:00 Depressive disorder, not elsewhere [facility] classified Ancillary Services C jag 2022-08-08 00:00 Depressive disorder [facility] Services [place] fowlerjag 2022-08-08 00:00 Hypertensive disorder [facility] Care & Anc[facility] Services [facility] 2022-08-08 00:00 Benign essential hypertension [facility] Primary Care & Ancillary Services [facility] 2022-08-08 00:00 Unspecified essential hypertension [facility] 2022-08-08 00:00 Major depressive disorder, single [facility] Primary Care & episode, unspecified Ancillary Services [place] 2022-08-08 00:00 Essential (primary) hypertension [facility] Primary Care & Ancillary Services [facility] 2022-08-13 00:00 Thyroid disorder screening [facility] Care & Ancillary Services [facility] 2022-08-13 00:00 Long-term drug therapy [facility] Primary Care & Ancillary Services [facility] 2022-08-13 00:00 Hyperlipidemia screening [facility]In [facility] Care & Ancillary [facility] 2022-08-13 00:00 Depressive disorder, not elsewhere [facility] & classified Ancillary Services [facility] 2022-08-13 00:00 Depressive disorder Walk[facility]In Clinic [facility] Care & Ancillary Services [facility] 2022-08-13 00:00 Hypertensive disorder [facility] Care & Ancillary Services [facility] 2022-08-13 00:00 Benign essential hypertension [facility] Primary Care & Ancillary Services [facility] 2022-08-13 00:00 Unspecified essential hypertension [facility] 2022-08-13 00:00 Major depressive disorder, single [facility] Primary Care & episode, unspecified Ancillary Services [place] 2022-08-13 00:00 Essential (primary) hypertension [facility] Primary Care & Ancillary Services [facility] 2022-08-13 00:00 Long-term (current) drug use Walk-In [facility] Primary Care & Ancillary Services [facility] 2022-08-13 00:00 Screening for thyroid disorders [facility] Primary [facility] & Ancillary Services [facility] 2022-08-13 00:00 Screening for lipoid disorders [facility] Primary Care & Ancillary Services [facility] 2022-08-13 00:00 Encounter for screening for lipoid [facility] disorders [facility] 2022-08-13 00:00 Encounter for screening for other Walk [facility]In [facility] Primary Care & suspected endocrine disorder Ancillary S ernereyda Alan 2022-08-13 00:00 Other watermaster (current) drug [facility] Primary Care & therapy Ancillary Services [place] jag 2022-08-14 00:00 Depressive disorder, not elsewhere [facility] & classified Ancillary Services C jag 2022-08-14 00:00 Depressive disorder [facility] & [facility] Services [facility] jag 2022-08-14 00:00 Hypertensive disorder [facility] Care & Ancillary Services C jag 2022-08-14 00:00 Benign essential hypertension [facility] Primary Care & Ancillary Services [place] fowlerjag 2022-08-14 00:00 Unspecified essential hypertension [facility] Services [place] 2022-08-14 00:00 Major depressive disorder, single [facility] Primary Care & episode, unspecified Ancillary Services Alan 2022-08-14 00:00 Essential (primary) hypertension [facility] Primary Care & Ancillary Services [facility] rm Procedures date description facility 2022 00:00 Visit Code Hold [facility] & Ancillary Services [place] fowlerjag 2022-07-19 00:00 Visit Code Hold [facility] Services [facility] 2022-08-07 00:00 Visit Code Hold [facility] 2022-07-19 00:00 CT HEAD WO [facility] Services [facility] rm 2022-08-13 00:00 COMPREHENSIVE METABOLIC PANEL [facility] Primary Care & Ancillary Services [place] jag 2022-08-13 00:00 LIPIDS SCREEN [facility] Services [place] fowlerjag 2022-07-19 00:00 VITAMIN B 12 [facility] & Ancillary Services [facility] 2022-07-19 00:00 Ferritin [facility] & [facility] Services [facility] 2022-07-19 00:00 Folic Acid [facility] & Ancillary Services [facility] 2022-07-19 00:00 Transferrin [facility] & Ancillary Services [facility] rm 2022-07-19 00:00 CBC W/Diff/Plt Walk[facility]In Clinic [facility] Care & Ancillary Services [facility] 2022-08-13 00:00 CBC W/Diff/Plt Walk[facility]In [facility] Care & Ancillary Services [facility] 2022-07-19 00:[address] Auto Walk-In [facility] Care & Ancillary Services [facility] 2022-07-19 00:00 Fluzone High-Dose Intramuscular [facility] Clinic Primary Care & Suspension Ancillary Services [facility] 2022-07-19 00:00 Iron & TIBC Walk-In Clinic [facility] Care & Ancillary Services [facility] 2022-08-13 00:00 TSH WITH REFLEX TO FT4 Walk-In [facility] Primary Care & Ancillary Services [facility] 2022-07-19 00:00 Administration of Influenza Virus Walk -In [facility] Primary Care & Vaccine Ancillary Services [facility] Results/Labs test date author facility value unit interpret ation Result panel 1 (unknown) (no date) (unknown) Walk-In (no value) (units ([facility] nown[facility] Clinic Primary unknown) Care & Ancillary Services Alan Result panel 2 (unknown) (no date) (unknown) Walk-In (no value) (units [facility]own[facility] Clinic Primary unknown) Care & Ancillary Services [facility] Result panel 3 (unknown) (no date) (unknown) Walk-In (no value) (units ([facility] nown[facility] Clinic Primary unknown) Care & Ancillary Services [facility] Result panel 4 (unknown) (no date) (unknown) Walk-In (no value) (units ([facility]own[facility] Clinic Primary unknown) Care & Ancillary Services [facility] Result panel 5 (unknown) (no date) (unknown) Walk-In (no value) (units ([facility]own[facility] Clinic Primary unknown) Care & Ancillary Services [facility] Result panel 6 (unknown) (no date) (unknown) Walk-In (no value) (units ([facility]own[facility] Clinic Primary unknown) Care & Ancillary Services [facility] Result panel 7 (unknown) (no date) (unknown) Walk-In (no value) (units ([facility]own[facility] Clinic Primary unknown) Care & Ancillary Services [facility] Result panel 8 (unknown) (no date) (unknown) Walk-In (no value) (units ([facility] nown[facility] Clinic Primary unknown) Care & Anc[facility] Services [facility] Result panel 9 (unknown) (no date) (unknown) Walk-In (no value) (units ([facility] nown[facility] Clinic Primary unknown) Care & Ancillary Services [facility] Result panel 10 (unknown) (no date) (unknown) Walk-In (no value) (units ([facility] nown[facility] Clinic Primary unknown) Care & Ancillary Services [facility] Result panel 11 (unknown) (no date) (unknown) Walk-In (no value) (units ([facility] nown[facility] Clinic Primary unknown) Care & Ancillary Services [facility] Result panel 12 (unknown) (no date) (unknown) Walk-In (no value) (units ([facility] nown[facility] Clinic Primary unknown) Care & Ancillary Services [facility] Result panel 13 (unknown) (no date) (unknown) Walk-In (no value) (units ([facility] nown[facility] Clinic Primary unknown) Care & Ancillary Services [facility] Result panel 14 (unknown) (no date) (unknown) Walk-In (no value) (units ([facility] nown[facility] Clinic Primary unknown) Care & Ancillary Services [facility] Result panel 15 (unknown) (no date) (unknown) Walk-In (no value) (units ([facility] nown[facility] Clinic Primary unknown) Care & Ancillary Services [facility] Result panel 16 (unknown) (no date) (unknown) Walk-In (no value) (units ([facility] nown) Clinic Primary unknown) Care & Ancillary Services [facility] Result panel 17 (unknown) (no date) (unknown) Walk-In (no value) (units ([facility] nown) Clinic Primary unknown) Care & Ancillary Services [facility] Result panel 18 (unknown) (no date) (unknown) Walk-In (no value) (units ([facility] nown) Clinic Primary unknown) Care & Ancillary Services [facility] Result panel 19 (unknown) (no date) (unknown) Walk-In (no value) (units ([facility] nown[facility] Clinic Primary unknown) Care & Ancillary Services [facility] Result panel 20 (unknown) (no date) (unknown) Walk-In (no value) (units ([facility] nown[facility] Clinic Primary unknown) Care & Ancillary Services [facility] Result panel 21 (unknown) (no date) (unknown) Walk-In (no value) (units ([facility] nown) Clinic Primary unknown) Care & Ancillary Services [facility] Result panel 22 (unknown) (no date) (unknown) Walk-In (no value) (units ([facility] nown) Clinic Primary unknown) Care & Ancillary Services [facility] Result panel 23 (unknown) (no date) (unknown) Walk-In (no value) (units ([facility] nown) Clinic Primary unknown) Care & Ancillary Services [facility] Result panel 24 (unknown) (no date) (unknown) Walk-In (no value) (units ([facility] nown) Clinic Primary unknown) Care & Ancillary Services [facility] Result panel 25 (unknown) (no date) (unknown) Walk-In (no value) (units ([facility] nown) Clinic Primary unknown) Care & Ancillary Services [facility] Result panel 26 (unknown) (no date) (unknown) Walk-In (no value) (units ([facility] nown[facility] Clinic Primary unknown) Care & Ancillary Services [facility] Result panel 27 (unknown) (no date) (unknown) Walk-In (no value) (units ([facility] nown) Clinic Primary unknown) Care & Anc[facility] Services [facility] Result panel 28 (unknown) (no date) (unknown) Walk-In (no value) (units ([facility] nown) Clinic Primary unknown) Care & Ancillary Services [facility] Result panel 29 (unknown) (no date) (unknown) Walk-In (no value) (units ([facility] nown) Clinic Primary unknown) Care & Ancillary Services [facility] Result panel 30 (unknown) (no date) (unknown) Walk-In (no value) (units ([facility] nown) Clinic Primary unknown) Care & Ancillary Services [facility] Result panel 31 (unknown) (no date) (unknown) Walk-In (no value) (units ([facility] nown) Clinic Primary unknown) Care & Ancillary Services [facility] Result panel 32 (unknown) (no date) (unknown) Walk-In (no value) (units ([facility] nown) Clinic Primary unknown) Care & Ancillary Services [facility] Result panel 33 (unknown) (no date) (unknown) Walk-In (no value) (units ([facility] nown) Clinic Primary unknown) Care & Ancillary Services [facility] Result panel 34 (unknown) (no date) (unknown) Walk-In (no value) (units ([facility] nown) Clinic Primary unknown) Care & Anc[facility] Services [facility] Result panel 35 (unknown) (no date) (unknown) Walk-In (no value) (units ([facility] nown) Clinic Primary unknown) Care & Anc[facility] Services [facility] Result panel 36 (unknown) (no date) (unknown) Walk-In (no value) (units ([facility] nown) Clinic Primary unknown) Care & Ancillary Services [facility] Result panel 37 (unknown) (no date) (unknown) Walk-In (no value) (units (unk nown) Clinic Primary unknown) Care & Ancillary Services [facility] Result panel 38 (unknown) (no date) (unknown) Walk-In (no value) (units (unk nown) Clinic Primary unknown) Care & Ancillary Services [facility] Result panel 39 (unknown) (no date) (unknown) Walk-In (no value) (units ([facility] nown) Clinic Primary unknown) Care & Ancillary Services [facility] Result panel 40 (unknown) (no date) (unknown) Walk-In (no value) (units ([facility] nown) Clinic Primary unknown) Care & Ancillary Services [facility] Result panel 41 (unknown) (no date) (unknown) Walk-In (no value) (units (unk nown) Clinic Primary unknown) Care & Ancillary Services [facility] Result panel 42 (unknown) (no date) (unknown) Walk-In (no value) (units ([facility] nown) Clinic Primary unknown) Care & Ancillary Services [facility] Result panel 43 (unknown) (no date) (unknown) Walk-In (no value) (units (unk nown) Clinic Primary unknown) Care & Ancillary Services [facility] Result panel 44 (unknown) (no date) (unknown) Walk-In (no value) (units (unk nown) Clinic Primary unknown) Care & Ancillary Services [facility] Result panel 45 (unknown) (no date) (unknown) Walk-In (no value) (units (unk nown) Clinic Primary unknown) Care & Ancillary Services [facility] Result panel 46 (unknown) (no date) (unknown) Walk-In (no value) (units (unk nown) Clinic Primary unknown) Care & Ancillary Services [facility] Result panel 47 (unknown) (no date) (unknown) Walk-In (no value) (units ([facility] nown) Clinic Primary unknown) Care & Ancillary Services [facility] Result panel 48 (unknown) (no date) (unknown) Walk-In (no value) (units ([facility] nown) Clinic Primary unknown) Care & Ancillary Services [facility] Result panel 49 (unknown) (no date) (unknown) Walk-In (no value) (units ([facility] nown) Clinic Primary unknown) Care & Ancillary Services [facility] Result panel 50 (unknown) (no date) (unknown) Walk-In (no value) (units (unk nown) Clinic Primary unknown) Care & Ancillary Services [facility] Result panel 51 (unknown) (no date) (unknown) Walk-In (no value) (units (unk nown) Clinic Primary unknown) Care & Anc[facility] Services [facility] Result panel 52 (unknown) (no date) (unknown) Walk-In (no value) (units (unk nown) Clinic Primary unknown) Care & Ancillary Services [facility] Result panel 53 (unknown) (no date) (unknown) Walk-In (no value) (units (unk nown) Clinic Primary unknown) Care & Anc[facility] Services [facility] Result panel 54 (unknown) (no date) (unknown) Walk-In (no value) (units (unk nown) Clinic Primary unknown) Care & Ancillary Services [facility] Result panel 55 (unknown) (no date) (unknown) Walk-In (no value) (units (unk nown) Clinic Primary unknown) Care & Anc[facility] Services [facility] Result panel 56 (unknown) (no date) (unknown) Walk-In (no value) (units (unk nown) Clinic Primary unknown) Care & Anc[facility] Services [facility] Result panel 57 (unknown) (no date) (unknown) Walk-In (no value) (units (unk nown) Clinic Primary unknown) Care & Ancillary Services [facility] Result panel 58 (unknown) (no date) (unknown) Walk-In (no value) (units (unk nown) Clinic Primary unknown) Care & Ancillary Services [facility] Result panel 59 (unknown) (no date) (unknown) Walk-In (no value) (units (unk nown) Clinic Primary unknown) Care & Ancillary Services [facility] Result panel 60 (unknown) (no date) (unknown) Walk-In (no value) (units (unk nown) Clinic Primary unknown) Care & Ancillary Services [facility] Result panel 61 (unknown) (no date) (unknown) Walk-In (no value) (units (unk nown) Clinic Primary unknown) Care & Ancillary Services [facility] Result panel 62 (unknown) (no date) (unknown) Walk-In (no value) (units (unk nown) Clinic Primary unknown) Care & Anc[facility] Services [facility] Result panel 63 (unknown) (no date) (unknown) Walk-In (no value) (units (unk nown) Clinic Primary unknown) Care & Anc[facility] Services [facility] Result panel 64 (unknown) (no date) (unknown) Walk-In (no value) (units (unk nown) Clinic Primary unknown) Care & Anc[facility] Services [facility] Result panel 65 (unknown) (no date) (unknown) Walk-In (no value) (units (unk nown) Clinic Primary unknown) Care & Ancillary Services [facility] Result panel 66 (unknown) (no date) (unknown) Walk-In (no value) (units (unk nown) Clinic Primary unknown) Care & Ancillary Services [facility] Result panel 67 (unknown) (no date) (unknown) Walk-In (no value) (units (unk nown) Clinic Primary unknown) Care & Anc[facility] Services [facility] Result panel 68 (unknown) (no date) (unknown) Walk-In (no value) (units (unk nown) Clinic Primary unknown) Care & Ancillary Services [facility] Result panel 69 (unknown) (no date) (unknown) Walk-In (no value) (units (unk nown) Clinic Primary unknown) Care & Anc[facility] Services [facility] Result panel 70 (unknown) (no date) (unknown) Walk-In (no value) (units (unk nown) Clinic Primary unknown) Care & Ancillary Services [facility] Result panel 71 (unknown) (no date) (unknown) Walk-In (no value) (units (unk nown) Clinic Primary unknown) Care & Anc[facility] Services [facility] Result panel 72 (unknown) (no date) (unknown) Walk-In (no value) (units (unk nown) Clinic Primary unknown) Care & Anc[facility] Result panel 73 (unknown) (no date) (unknown) Walk-In (no value) (units (unk nown) Clinic Primary unknown) Care & Anc[facility] Services [facility] Result panel 74 (unknown) (no date) (unknown) Walk-In (no value) (units (unk nown) Clinic Primary unknown) Care & Anc[facility] Services [facility] Result panel 75 (unknown) (no date) (unknown) Walk-In (no value) (units (unk nown) Clinic Primary unknown) Care & Anc[facility] Services [facility] Result panel 76 (unknown) (no date) (unknown) Walk-In (no value) (units (unk nown) Clinic Primary unknown) Care & Anc[facility] Services [facility] Result panel 77 (unknown) (no date) (unknown) Walk-In (no value) (units (unk nown) Clinic Primary unknown) Care & Anc[facility] Services [facility] Result panel 78 (unknown) (no date) (unknown) Walk-In (no value) (units (unk nown) Clinic Primary unknown) Care & Ancillary Services [facility] Result panel 79 (unknown) (no date) (unknown) Walk-In (no value) (units (unk nown) Clinic Primary unknown) Care & Anc[facility] Services [facility] Result panel 80 (unknown) (no date) (unknown) Walk-In (no value) (units (unk nown) Clinic Primary unknown) Care & Anc[facility] Services [facility] Result panel 81 (unknown) (no date) (unknown) Walk-In (no value) (units (unk nown) Clinic Primary unknown) Care & Anc[facility] Services [facility] Result panel 82 (unknown) (no date) (unknown) Walk-In (no value) (units (unk nown) Clinic Primary unknown) Care & Anc[facility] Result panel 83 (unknown) (no date) (unknown) Walk-In (no value) (units (unk nown) Clinic Primary unknown) Care & Anc[facility] Services [facility] Result panel 84 (unknown) (no date) (unknown) Walk-In (no value) (units (unk nown) Clinic Primary unknown) Care & Anc[facility] Result panel 85 (unknown) (no date) (unknown) Walk-In (no value) (units (unk nown) Clinic Primary unknown) Care & Anc[facility] Services [facility] Result panel 86 (unknown) (no date) (unknown) Walk-In (no value) (units (unk nown) Clinic Primary unknown) Care & Anc[facility] Result panel 87 (unknown) (no date) (unknown) Walk-In (no value) (units (unk nown) Clinic Primary unknown) Care & Anc[facility] Services [facility] Result panel 88 (unknown) (no date) (unknown) Walk-In (no value) (units (unk nown) Clinic Primary unknown) Care & Anc[facility] Services [facility] Result panel 89 (unknown) (no date) (unknown) Walk-In (no value) (units (unk nown) Clinic Primary unknown) Care & Anc[facility] Services [facility] Result panel 90 (unknown) (no date) (unknown) Walk-In (no value) (units (unk nown) Clinic Primary unknown) Care & Anc[facility] Services [facility] Result panel 91 (unknown) (no date) (unknown) Walk-In (no value) (units (unk nown) Clinic Primary unknown) Care & Anc[facility] Services [facility] Result panel 92 (unknown) (no date) (unknown) Walk-In (no value) (units (unk nown) Clinic Primary unknown) Care & Anc[facility] Services [facility] Result panel 93 (unknown) (no date) (unknown) Walk-In (no value) (units (unk nown) Clinic Primary unknown) Care & Anc[facility] Services [facility] Result panel 94 (unknown) (no date) (unknown) Walk-In (no value) (units (unk nown) Clinic Primary unknown) Care & Anc[facility] Services [facility] Result panel 95 (unknown) (no date) (unknown) Walk-In (no value) (units (unk nown) Clinic Primary unknown) Care & Anc[facility] Result panel 96 (unknown) (no date) (unknown) Walk-In (no value) (units (unk nown) Clinic Primary unknown) Care & Anc[facility] Services [facility] Result panel 97 (unknown) (no date) (unknown) Walk-In (no value) (units (unk nown) Clinic Primary unknown) Care & Anc[facility] Result panel 98 (unknown) (no date) (unknown) Walk-In (no value) (units (unk nown) Clinic Primary unknown) Care & [facility] Result panel 99 (unknown) (no date) (unknown) Walk-In (no value) (units (unk nown) Clinic Primary unknown) Care & [facility] Result panel 100 (unknown) (no date) (unknown) Walk-In (no value) (units (unk nown) Clinic Primary unknown) Care & [facility] Result panel 101 (unknown) (no date) (unknown) Walk-In (no value) (units (unk nown) Clinic Primary unknown) Care & [facility] Result panel 102 (unknown) (no date) (unknown) Walk-In (no value) (units (unk nown) Clinic Primary unknown) Care & [facility] Result panel 103 (unknown) (no date) (unknown) Walk-In (no value) (units (unk nown) Clinic Primary unknown) Care & [facility] Result panel 104 (unknown) (no date) (unknown) Walk-In (no value) (units (unk nown) Clinic Primary unknown) Care & [facility] Result panel 105 (unknown) (no date) (unknown) Walk-In (no value) (units (unk nown) Clinic Primary unknown) Care & [facility] Result panel 106 (unknown) (no date) (unknown) Walk-In (no value) (units (unk nown) Clinic Primary unknown) Care & Anc[facility] Services [facility] Result panel 107 (unknown) (no date) (unknown) Walk-In (no value) (units (unk nown) Clinic Primary unknown) [facility] Result panel 108 (unknown) (no date) (unknown) [facility] (no value[facility] Result panel 109 (unknown) (no date) (unknown) [facility] (no value) [facility] Result panel 110 (unknown) (no date) (unknown) [facility] (no value) [facility] Result panel 111 (unknown) (no date) (unknown) [facility] (no value) [facility] Result panel 112 (unknown) (no date) (unknown) [facility] (no value) [facility] Result panel 113 (unknown) (no date) (unknown) [facility] (no value) [facility] Result panel 114 (unknown) (no date) (unknown) [facility] (no value) [facility] Result panel 115 (unknown) (no date) (unknown) [facility] (no value) [facility] Result panel 116 (unknown) (no date) (unknown) [facility] (no value) [facility] Result panel 117 (unknown) (no date) (unknown) [facility] (no value) [facility] Result panel 118 (unknown) (no date) (unknown) [facility] (no value) [facility] Result panel 119 (unknown) (no date) (unknown) [facility] (no value) [facility] Result panel 120 (unknown) (no date) (unknown) [facility] (no value) [facility] Result panel 121 (unknown) (no date) (unknown) [facility] (no value) [facility] Result panel 122 (unknown) (no date) (unknown) [facility] (no value) [facility] Result panel 123 (unknown) (no date) (unknown) [facility] (no value) [facility] Result panel 124 (unknown) (no date) (unknown) [facility] (no value) [facility] Result panel 125 (unknown) (no date) (unknown) [facility] (no value) [facility] Result panel 126 (unknown) (no date) (unknown) [facility] (no value) [facility] Result panel 127 (unknown) (no date) (unknown) [facility] (no value) [facility] Result panel 128 (unknown) (no date) (unknown) [facility] (no value) [facility] Result panel 129 (unknown) (no date) (unknown) [facility] (no value) [facility] Result panel 130 (unknown) (no date) (unknown) [facility] (no value) [facility] Result panel 131 (unknown) (no date) (unknown) [facility] (no value) [facility] Result panel 132 (unknown) (no date) (unknown) [facility] (no value) [facility] Result panel 133 (unknown) (no date) (unknown) [facility] (no value) [facility] Result panel 134 (unknown) (no date) (unknown) [facility] (no value) [facility] Result panel 135 (unknown) (no date) (unknown) [facility] (no value) [facility] Result panel 136 (unknown) (no date) (unknown) [facility] (no value) [facility] Result panel 137 (unknown) (no date) (unknown) [facility] (no value) [facility] Result panel 138 (unknown) (no date) (unknown) [facility] (no value) [facility] Result panel 139 (unknown) (no date) (unknown) [facility] (no value) [facility] Result panel 140 (unknown) (no date) (unknown) [facility] (no value) [facility] Result panel 141 (unknown) (no date) (unknown) [facility] (no value) [facility] Result panel 142 (unknown) (no date) (unknown) [facility] (no value) [facility] Result panel 143 (unknown) (no date) (unknown) [facility] (no value) [facility] Result panel 144 (unknown) (no date) (unknown) [facility] (no value) [facility] Result panel 145 (unknown) (no date) (unknown) [facility] (no value) [facility] Result panel 146 (unknown) (no date) (unknown) [facility] (no value) [facility] Result panel 147 (unknown) (no date) (unknown) [facility] (no value) [facility] Result panel 148 (unknown) (no date) (unknown) [facility] (no value) [facility] Result panel 149 (unknown) (no date) (unknown) [facility] (no value) [facility] Result panel 150 (unknown) (no date) (unknown) [facility] (no value) [facility] Result panel 151 (unknown) (no date) (unknown) [facility] (no value) [facility] Result panel 152 (unknown) (no date) (unknown) [facility] (no value) [facility] Result panel 153 (unknown) (no date) (unknown) [facility] (no value) [facility] Result panel 154 (unknown) (no date) (unknown) [facility] (no value) [facility] Result panel 155 (unknown) (no date) (unknown) [facility] (no value) [facility] Result panel 156 (unknown) (no date) (unknown) [facility] (no value) [facility] Result panel 157 (unknown) (no date) (unknown) [facility] (no value) [facility] Result panel 158 (unknown) (no date) (unknown) [facility] (no value) [facility] Result panel 159 (unknown) (no date) (unknown) [facility] (no value) [facility] Result panel 160 (unknown) (no date) (unknown) [facility] (no value) [facility] Result panel 161 (unknown) (no date) (unknown) [facility] (no value) [facility] Result panel 162 (unknown) (no date) (unknown) [facility] (no value) [facility] Result panel 163 (unknown) (no date) (unknown) [facility] (no value) [facility] Result panel 164 (unknown) (no date) (unknown) [facility] (no value) [facility] Result panel 165 (unknown) (no date) (unknown) [facility] (no value) [facility] Result panel 166 (unknown) (no date) (unknown) [facility] (no value) [facility] Result panel 167 (unknown) (no date) (unknown) [facility] (no value) [facility] Result panel 168 (unknown) (no date) (unknown) [facility] (no value) [facility] Result panel 169 (unknown) (no date) (unknown) [facility] (no value) [facility] Result panel 170 (unknown) (no date) (unknown) [facility] (no value) [facility] Result panel 171 (unknown) (no date) (unknown) [facility] (no value) [facility] Result panel 172 (unknown) (no date) (unknown) [facility] (no value) [facility] Result panel 173 (unknown) (no date) (unknown) [facility] (no ([facility] Result panel 174 (unknown) (no date) (unknown) [facility] (no value) [facility] Result panel 175 (unknown) (no date) (unknown) [facility] (no value) [facility] Result panel 176 (unknown) (no date) (unknown) [facility] (no value) [facility] Result panel 177 (unknown) (no date) (unknown) [facility] (no value) [facility] Result panel 178 (unknown) (no date) (unknown) [facility] (no value) [facility] Result panel 179 (unknown) (no date) (unknown) [facility] (no value) [facility] Result panel 180 (unknown) (no date) (unknown) [facility] (no value) [facility] Result panel 181 (unknown) (no date) (unknown) [facility] (no value) [facility] Result panel 182 (unknown) (no date) (unknown) [facility] (no value) [facility] Result panel 183 (unknown) (no date) (unknown) [facility] (no value) [facility] Result panel 184 (unknown) (no date) (unknown) [facility] (no value) [facility] Result panel 185 (unknown) (no date) (unknown) [facility] (no value) [facility] Result panel 186 (unknown) (no date) (unknown) [facility] (no value) [facility] Result panel 187 (unknown) (no date) (unknown) [facility] (no value) [facility] Result panel 188 (unknown) (no date) (unknown) [facility] (no value) [facility] Result panel 189 (unknown) (no date) (unknown) [facility] (no value) [facility] Result panel 190 (unknown) (no date) (unknown) [facility] (no value) [facility] Result panel 191 (unknown) (no date) (unknown) [facility] (no value) [facility] Result panel 192 (unknown) (no date) (unknown) [facility] (no value) [facility] Result panel 193 (unknown) (no date) (unknown) [facility] (no value) [facility] Result panel 194 (unknown) (no date) (unknown) [facility] (no value) [facility] Result panel 195 (unknown) (no date) (unknown) [facility] (no value) [facility] Result panel 196 (unknown) (no date) (unknown) [facility] (no value) [facility] Result panel 197 (unknown) (no date) (unknown) [facility] (no value) [facility] Result panel 198 (unknown) (no date) (unknown) [facility] (no value) [facility] Result panel 199 (unknown) (no date) (unknown) [facility] (no value) [facility] Result panel 200 (unknown) (no date) (unknown) [facility] (no value) [facility] Result panel 201 (unknown) (no date) (unknown) [facility] (no value) [facility] Result panel 202 (unknown) (no date) (unknown) [facility] (no value) [facility] Result panel 203 (unknown) (no date) (unknown) [facility] (no value) [facility] Result panel 204 (unknown) (no date) (unknown) [facility] (no value) [facility] Result panel 205 (unknown) (no date) (unknown) [facility] (no value) [facility] Result panel 206 (unknown) (no date) (unknown) [facility] (no value) [facility] Result panel 207 (unknown) (no date) (unknown) [facility] (no value) [facility] Result panel 208 (unknown) (no date) (unknown) [facility] (no value) [facility] Result panel 209 (unknown) (no date) (unknown) [facility] (no value) [facility] Result panel 210 (unknown) (no date) (unknown) [facility] (no value) [facility] Result panel 211 (unknown) (no date) (unknown) [facility] (no value) [facility] Result panel 212 (unknown) (no date) (unknown) [facility] (no value) [facility] Result panel 213 (unknown) (no date) (unknown) [facility] (no value) [facility] Result panel 214 (unknown) (no date) (unknown) [facility] (no value) [facility] Result panel 215 (unknown) (no date) (unknown) [facility] (no value) [facility] Result panel 216 (unknown) (no date) (unknown) [facility] (no value) [facility] Result panel 217 (unknown) (no date) (unknown) [facility] (no value) [facility] Result panel 218 (unknown) (no date) (unknown) [facility] (no value) [facility] Result panel 219 (unknown) (no date) (unknown) [facility] (no value) [facility] Result panel 220 (unknown) (no date) (unknown) [facility] (no value) [facility] Result panel 221 (unknown) (no date) (unknown) [facility] (no value) [facility] Result panel 222 (unknown) (no date) (unknown) [facility] (no value) [facility] Result panel 223 (unknown) (no date) (unknown) [facility] (no value) [facility] Result panel 224 (unknown) (no date) (unknown) [facility] (no value) [facility] Result panel 225 (unknown) (no date) (unknown) [facility] (no value) [facility] Result panel 226 (unknown) (no date) (unknown) [facility] (no value) [facility] Result panel 227 (unknown) (no date) (unknown) [facility] (no value) [facility] Result panel 228 (unknown) (no date) (unknown) [facility] (no value) [facility] Result panel 229 (unknown) (no date) (unknown) [facility] (no value) [facility] Result panel 230 (unknown) (no date) (unknown) [facility] (no value) [facility] Result panel 231 (unknown) (no date) (unknown) [facility] (no value) [facility] Result panel 232 (unknown) (no date) (unknown) [facility] (no value) [facility] Result panel 233 (unknown) (no date) (unknown) [facility] (no value) [facility] Result panel 234 (unknown) (no date) (unknown) [facility] (no value) [facility] Result panel 235 (unknown) (no date) (unknown) [facility] (no value) [facility] Result panel 236 (unknown) (no date) (unknown) [facility] (no value) [facility] Result panel 237 (unknown) (no date) (unknown) [facility] (no value) [facility] Result panel 238 (unknown) (no date) (unknown) [facility] (no value) [facility] Result panel 239 (unknown) (no date) (unknown) [facility] (no value) [facility] Result panel 240 (unknown) (no date) (unknown) [facility] (no value) [facility] Result panel 241 (unknown) (no date) (unknown) [facility] (no value) [facility] Result panel 242 (unknown) (no date) (unknown) [facility] (no value) [facility] Result panel 243 (unknown) (no date) (unknown) [facility] (no value) [facility] Result panel 244 (unknown) (no date) (unknown) [facility] (no value) [facility] Result panel 245 (unknown) (no date) (unknown) [facility] (no value) [facility] Result panel 246 (unknown) (no date) (unknown) [facility] (no value) [facility] Result panel 247 (unknown) (no date) (unknown) [facility] (no value) [facility] Result panel 248 (unknown) (no date) (unknown) [facility] (no value) [facility] Result panel 249 (unknown) (no date) (unknown) [facility] (no value) [facility] Result panel 250 (unknown) (no date) (unknown) [facility] (no value) [facility] Result panel 251 (unknown) (no date) (unknown) [facility] (no value) [facility] Result panel 252 (unknown) (no date) (unknown) [facility] (no value) [facility] Result panel 253 (unknown) (no date) (unknown) [facility] (no value) [facility] Result panel 254 (unknown) (no date) (unknown) [facility] (no value) [facility] Result panel 255 (unknown) (no date) (unknown) [facility] (no value) [facility] Result panel 256 (unknown) (no date) (unknown) [facility] (no value) [facility] Result panel 257 (unknown) (no date) (unknown) [facility] (no value) [facility] Result panel 258 (unknown) (no date) (unknown) [facility] (no value) [facility] Result panel 259 (unknown) (no date) (unknown) [facility] (no value) [facility] Result panel 260 (unknown) (no date) (unknown) [facility] (no value) [facility] Result panel 261 (unknown) (no date) (unknown) [facility] (no value) [facility] Result panel 262 (unknown) (no date) (unknown) [facility] (no value) [facility] Result panel 263 (unknown) (no date) (unknown) [facility] (no value) [facility] Result panel 264 (unknown) (no date) (unknown) [facility] (no value) [facility] Result panel 265 (unknown) (no date) (unknown) [facility] (no value) [facility] Result panel 266 (unknown) (no date) (unknown) [facility] (no value) [facility] Result panel 267 (unknown) (no date) (unknown) [facility] (no value) [facility] Result panel 268 (unknown) (no date) (unknown) [facility] (no value) [facility] Result panel 269 (unknown) (no date) (unknown) [facility] (no value) [facility] Result panel 270 (unknown) (no date) (unknown) [facility] (no value) [facility] Result panel 271 (unknown) (no date) (unknown) [facility] (no value) [facility] Result panel 272 (unknown) (no date) (unknown) [facility] (no value) [facility] Result panel 273 (unknown) (no date) (unknown) [facility] (no value) [facility] Result panel 274 (unknown) (no date) (unknown) [facility] (no value) [facility] Result panel 275 (unknown) (no date) (unknown) [facility] (no value) [facility] Result panel 276 (unknown) (no date) (unknown) [facility] (no value) [facility] Result panel 277 (unknown) (no date) (unknown) [facility] (no value) [facility] Result panel 278 (unknown) (no date) (unknown) [facility] (no value) [facility] Result panel 279 (unknown) (no date) (unknown) [facility] (no value) [facility] Result panel 280 (unknown) (no date) (unknown) [facility] (no value[facility]units [facility] nown[facility]) [facility] Result panel 281 (unknown) (no date) (unknown) Walk-[facility] (no value) [facility]units [facility] nown) [facility] Result panel 282 (unknown) (no date) (unknown) Walk-[facility] (no value) (units ([facility] nown) [facility] Result panel 283 (unknown) (no date) (unknown) Walk-In (no value) (units ([facility] nown) [facility] Result panel 284 (unknown) (no date) (unknown) Walk-In (no value) (units ([facility] nown) [facility] Result panel 285 (unknown) (no date) (unknown) Walk-In (no value) (units ([facility] nown) [facility] Result panel 286 (unknown) (no date) (unknown) Walk-In (no value) (units ([facility] nown) [facility] Result panel 287 (unknown) (no date) (unknown) Walk-In (no value) (units ([facility] nown) [facility] Result panel 288 (unknown) (no date) (unknown) Walk-In (no value) (units ([facility] nown) [facility] Result panel 289 (unknown) (no date) (unknown) Walk-In (no value) (units ([facility] nown) [facility] Result panel 290 (unknown) (no date) (unknown) Walk-In (no value) (units ([facility] nown) [facility] Result panel 291 (unknown) (no date) (unknown) Walk-In (no value) (units ([facility] nown) [facility] Result panel 292 (unknown) (no date) (unknown) Walk-In (no value) (units ([facility] nown) [facility] Result panel 293 (unknown) (no date) (unknown) Walk-In (no value) (units ([facility] nown) [facility] Result panel 294 (unknown) (no date) (unknown) Walk-In (no value) (units ([facility] nown) [facility]) [facility] Result panel 295 (unknown) (no date) (unknown) Walk-In (no value) (units ([facility] nown) [facility] Result panel 296 (unknown) (no date) (unknown) Walk-In (no value) (units ([facility] nown) [facility] Result panel 297 (unknown) (no date) (unknown) Walk-In (no value) (units ([facility] nown) [facility] Result panel 298 (unknown) (no date) (unknown) Walk-In (no value) (units ([facility] nown) [facility] Result panel 299 (unknown) (no date) (unknown) Walk-In (no value) (units ([facility] nown) [facility] Result panel 300 (unknown) (no date) (unknown) Walk-In (no value) (units ([facility] nown) [facility] Result panel 301 (unknown) (no date) (unknown) Walk-In (no value) (units ([facility] nown) [facility] Result panel 302 (unknown) (no date) (unknown) Walk-In (no value) (units ([facility] nown) [facility] Result panel 303 (unknown) (no date) (unknown) Walk-In (no value) (units ([facility] nown) [facility] Result panel 304 (unknown) (no date) (unknown) Walk-In (no value) (units ([facility] nown) [facility] Result panel 305 (unknown) (no date) (unknown) Walk-In (no value) (units ([facility] nown) [facility] Result panel 306 (unknown) (no date) (unknown) Walk-In (no value) (units ([facility] nown) [facility] Result panel 307 (unknown) (no date) (unknown) Walk-In (no value) (units ([facility] nown) [facility] Result panel 308 (unknown) (no date) (unknown) Walk-In (no value) (units ([facility] nown) [facility] Result panel 309 (unknown) (no date) (unknown) Walk-In (no value) (units ([facility] nown) [facility] Result panel 310 (unknown) (no date) (unknown) Walk-In (no value) (units ([facility] nown) [facility] unknown[facility] Result panel 311 (unknown) (no date) (unknown) Walk-In (no value) (units ([facility] nown) [facility] Result panel 312 (unknown) (no date) (unknown) Walk-In (no value) (units ([facility] nown) [facility] Result panel 313 (unknown) (no date) (unknown) Walk-In (no value) (units ([facility] nown) [facility] Result panel 314 (unknown) (no date) (unknown) Walk-In (no value) (units ([facility] nown) [facility] Result panel 315 (unknown) (no date) (unknown) Walk-In (no value) (units ([facility] nown) [facility] Result panel 316 (unknown) (no date) (unknown) Walk-In (no value) (units ([facility] nown) [facility] Result panel 317 (unknown) (no date) (unknown) Walk-In (no value) (units ([facility] nown) [facility] Result panel 318 (unknown) (no date) (unknown) Walk[facility]In (no value) (units ([facility] nown) [facility] Result panel 319 (unknown) (no date) (unknown) Walk-In (no value) (units ([facility] nown) [facility] Result panel 320 (unknown) (no date) (unknown) Walk-In (no value) (units ([facility] nown) [facility] Result panel 321 (unknown) (no date) (unknown) Walk-In (no value) (units ([facility] nown) [facility] Result panel 322 (unknown) (no date) (unknown) Walk-In (no value) (units ([facility] nown) [facility] Result panel 323 (unknown) (no date) (unknown) Walk-In (no value) (units ([facility] nown) [facility] Result panel 324 (unknown) (no date) (unknown) Walk-In (no value) (units ([facility] nown) [facility] unknown[facility] Result panel 325 (unknown) (no date) (unknown) Walk-In (no value) (units ([facility] nown) [facility] Result panel 326 (unknown) (no date) (unknown) Walk-In (no value) (units ([facility] nown) [facility] unknown[facility] Result panel 327 (unknown) (no date) (unknown) Walk-In (no value) [facility]units ([facility] nown) [facility] unknown[facility] Social History date description facility 2022-07-19 00:00 Never smoker Walk-In [facility] 2022-08-07 00:00 Never smoker Walk-In [facility] Vital Signs date measurement value units 2022 00:00 BMI 29.46 kg/m2 2022 00:00 BP_diastolic 83 mmHg 2022 00:00 BP_systolic 134 mmHg 2022 00:00 heart_rate 60 /min 2022 00:00 height_metric 184.78 cm 2022 00:00 height_standard 72.75 in 2022 00:00 respiration_rate 16 /min 2022 00:00 temperature_metric 36.44 C 2022 00:00 temperature_standard 97.6 F 2022 00:00 weight_metric 100.24 kg 2022 00:00 weight_standard 221 lb 2022-07-19 00:00 BMI 29.46 kg/m2 2022-07-19 00:00 BP_diastolic 67 mmHg 2022-07-19 00:00 BP_systolic 112 mmHg 2022-07-19 00:00 heart_rate 67 /min 2022-07-19 00:00 height_metric 184.78 cm 2022-07-19 00:00 height_standard 72.75 in 2022-07-19 00:00 respiration_rate 16 /min 2022-07-19 00:00 temperature_metric 36.17 C 2022-07-19 00:00 temperature_standard 97.1 F 2022-07-19 00:00 weight_metric 100.24 kg 2022-07-19 00:00 weight_standard 221 lb 2022-08-07 00:00 BMI 29.46 kg/m2 2022-08-07 00:00 BP_diastolic 74 mmHg 2022-08-07 00:00 BP_systolic 110 mmHg 2022-08-07 00:00 heart_rate 59 /min 2022-08-07 00:00 height_metric 184.78 cm 2022-08-07 00:00 height_standard 72.75 in 2022-08-07 00:00 respiration_rate 16 /min 2022-08-07 00:00 temperature_metric 37.39 C 2022-08-07 00:00 temperature_standard 99.3 F 2022-08-07 00:00 weight_metric 100.24 kg 2022-08-07 00:00 weight_standard 221 lb
[2022-09-22] MEDS ORDERED: iohexoL-300 100 ML VIAL ONE (13:31)
[2022-09-22] MEDS ORDERED: SODIUM CHLORIDE 0.9% 1,000 ML IV STA (13:33)
--- NOTE | 2022-09-22 13:36 | ED Physician Documentation ---
History of Present Illness - Stated complaint Stated Complaint: MALE - Chief complaint Chief Complaint: Abd Pain - Additonal information Additional information: 72-year-old male presents to the emergency department for evaluation of a few days abdominal cramping, constipation and diarrhea. He reports symptoms began about 3 days ago in which he began having severe cramping in his abdomen and felt like he was going to defecate but was unable to. He stayed in bed much of Friday but began taking Dulcolax and prune juice. He was able to get out of bed yesterday where he had 4 watery bowel movements. He feels like he is rallied and feels better but his would like him to be evaluated. Patient's last colonoscopy was about 10 years ago. Patient does have a history of abdominal hernia repair. He has had no fevers. No vomiting. No melena or hematochezia. Has a history of hypertension for which she is on atenolol and hydrochlorothiazide. Review of Systems Constitutional: denies: Fever, Chills Nose: reports: Rhinorrhea / runny nose Throat: reports: Reviewed and negative Cardiac: reports: Reviewed and negative Respiratory: reports: Reviewed and negative GI: reports: Abdominal Pain, Nausea, Constipation, Diarrhea. denies: Vomiting, Hematemesis, Bloody / black stool : reports: Reviewed and negative Skin: reports: Reviewed and negative PD PAST MEDICAL HISTORY - Past Medical History Cardiovascular: Hypertension, High cholesterol, Arrhythmia Respiratory: Asthma Endocrine/Autoimmune: None GI: GERD, Colon polyps : Benign prostate hypertrophy HEENT: None Psych: Depression Musculoskeletal: None Derm: None - Past Surgical History General: Colonoscopy - Present Medications Home Medications: Ambulatory Orders Medication Instructions Recorded Confirmed atenoloL [Atenolol] 25 mg PO DAILY 03/22/14 09/22/22 hydroCHLOROthiazide 25 mg PO DAILY 03/22/14 09/22/22 [Hydrochlorothiazide] Amox/Clav 875/125 [Augmentin] 1 each PO Q12H #20 tablet 09/22/22 - Allergies Allergies/Adverse Reactions: Allergies Allergy/AdvReac Type Severity Reaction Status Date / Time No Known Drug Allergies Allergy Verified 09/22/22 11:50 PD ED PE NORMAL - General General: Alert and oriented X 3, No acute distress, Well developed/nourished - HEENT HEENT: Atraumatic, Moist mucous membranes - Neck Neck: Supple, no meningeal sign, No adenopathy - Cardiac Cardiac: RRR, No murmur - Respiratory Respiratory: No respiratory distress, Clear bilaterally - Abdomen Abdomen: Normal bowel sounds, Soft, Non tender (Mild tenderness elicited with palpation of the left lower quadrant and left mid quadrant but no guarding or rebound. No CVA tenderness) - Back Back: No CVA TTP - Derm Derm: Normal color, Warm and dry, No rash - Extremities Extremities: No deformity, No tenderness to palpate, Normal ROM s pain - Neuro Neuro: Alert and oriented X 3, household chores 2-12 intact Eye Opening: Spontaneous Motor: Obeys Commands Verbal: Oriented GCS Score: 15 Results - Vitals Vitals: Vital Signs - 24 hr 09/22/22 09/22/22 11:43 13:50 Temperature 36.9 C Heart Rate 62 68 Respiratory 16 18 Rate Blood Pressure 128/65 120/92 H O2 Saturation 100 99 Oxygen O2 Source Room air - Labs Labs: Laboratory Tests 09/22/22 09/22/22 09/22/22 11:52 11:58 11:58 WBC 13.8 H RBC 4.59 L Hgb 14.3 Hct 42.1 MCV 91.7 MCH 31.2 H MCHC 34.0 RDW 12.2 Plt Count 333 MPV 9.1 Neut # (Auto) 11.1 H Lymph # (Auto) 1.1 L Mcclain # (Auto) 1.3 H Eos # (Auto) 0.1 Baso # (Auto) 0.1 Absolute Nucleated RBC 0.00 Nucleated RBC % 0.0 Sodium 133 L Potassium 3.9 Chloride 96 L Carbon Dioxide 29 Anion Gap 8.0 BUN 14 Creatinine 0.8 Estimated GFR (MDRD) 96 Glucose 98 Calcium 9.0 Total Bilirubin 0.8 AST 18 ALT 20 Alkaline Phosphatase 47 Total Protein 7.6 Albumin 3.9 Globulin 3.7 Albumin/Globulin Ratio 1.1 Lipase 35 Urine Color YELLOW Urine Clarity CLEAR Urine pH 7.5 Ur Specific [place] 1.015 Urine Protein NEGATIVE Urine Glucose (UA) NEGATIVE Urine Ketones NEGATIVE Urine Occult Blood TRACE-INTA Urine Nitrite NEGATIVE Urine Bilirubin NEGATIVE Urine Urobilinogen 0.2 (NORMAL) Ur Leukocyte Esterase NEGATIVE Ur Microscopic Review NOT INDICATED Urine Culture Comments NOT INDICATED - Rads (name of study) Ct abd Radiology: Final report received (Moderate sigmoid diverticulitis. No shi findings of perforation or abscess can be seen.) PD Medical Decision Making - ED course Complexity details: reviewed results, re-evaluated patient, considered differential, d/w patient ED course: Very pleasant 72-year-old male presents emergency department for evaluation of 3 to 4 days constipation left-sided abdominal pain. Remote history of a colonoscopy about 10 years ago. He has had no bloody or mucoid stools. He has had alternating constipation and diarrhea. On exam he appears very well. He did have some tenderness in the left lower quadrant and left mid quadrant of his abdomen without guarding or rebound. Marcela l signs here in the emergency department are without fever, hypotension or tachycardia. Did obtain a CBC and electrolytes. We do note a mild leukocytosis of about 13,000. His electrolytes showed no acute worrisome derangements. Urine showed no signs of infection. A CT of the abdomen was completed and it shows acute uncomplicated diverticulitis. Nothing to suggest abscess or perforation. Given this finding the patient will be started on Augmentin for 10 days. His first dose was given here in the emergency department. He is currently scheduled to undergo a screening colonoscopy on 18 October. I have advised him to discuss this closely with the surgeon to see if they want him to extend the time between an acute illness and colonoscopy. We discussed routine emergent return precautions for worsening symptoms such as fever, sudden severe pain, uncontrolled vomiting, bloody or mucoid stools. Departure - Departure Disposition: 01 Home, Self Care Clinical Impression: Diverticulitis Condition: Stable Record reviewed to determine appropriate education?: Yes Instructions: ED Diverticulitis Prescriptions: Amox/Clav 875/125 [Augmentin] 1 each PO Q12H #20 tablet Comments: Moreno saba are seen today in the emergency department for some left-sided abdominal pain as well as constipation and then diarrhea. Here in the emergency department your lab work showed a mildly elevated white blood cell count of just over 13,000. You do not have any worrisome anemia. Your electrolytes showed normal kidney and liver function. We did do a CT of your abdomen and find diverticulitis. As discussed at the bedside I recommend that you sip clear liquids for the next 24 to 36 hours. It is okay to take the antibiotic. As you are symptoms begin to get better and improve you can start eating simple foods. If at any point you find that your symptoms are worsening, you develop any fevers, have uncontrolled vomiting, any black or largely bloody stools then you should return immediately to the ER. I encourage you to discuss this ED visit with your colonoscopy surgeon. They may elect to delay the colonoscopy by a few weeks in order to give the intestine some time to heal before wanting to complete the colonoscopy.
[2022-09-22] MEDS ORDERED: iohexoL-300 100 ML VIAL IVP ONE (14:03)
--- NOTE | 2022-09-22 14:20 | CT Report ---
PROCEDURE: ABDOMEN/PELVIS W INDICATIONS: periumbilical pain; constipation CONTRAST: 100omni 300 TECHNIQUE: After the administration of IV contrast, 5 mm thick sections acquired from the diaphragms to the symp hysis. 5 mm thick coronal and sagittal reformats were acquired. For radiation dose reduction, the f ollowing was used: automated exposure control, adjustment of mA and/or kV according to patient size. COMPARISON: None. FINDINGS: Image quality: Excellent. ABDOMEN: Lung bases: No focal infiltrates are seen. A subpleural bleb can be seen involving the lingula, as on series 4 image 1. Heart size is normal. Solid organs: Liver and spleen are normal in size and enhancement. Gallbladder is relatively decomp ressed at the time of this study. Biliary system is non dilated. Pancreas enhances normally. No adr enal nodules. Kidneys demonstrate normal size and enhancement, without hydronephrosis. Along the me dial aspect of the left kidney, there is a 2.7 cm nonenhancing water density cyst. Peritoneum and bowel: There is moderate wall thickening seen involving the sigmoid colon, with modera te to prominent surrounding inflammatory change. No shi free air is seen. No loculated abscess can be seen. Free fluid can be seen. The more proximal colon demonstrates no significant abnormality, although moderate diverticula format ion can be seen. No dilated loops of small bowel are seen. The stomach is relatively decompressed. Nodes and vessels: No retroperitoneal or mesenteric adenopathy by size criteria. Aorta and inferior vena cava are normal in size. Miscellaneous: A mild fat-containing periumbilical hernia is seen. PELVIS: Genitourinary: Bladder wall thickness is normal. The prostate is enlarged, measuring 6.3 cm transve rsely. Miscellaneous: No inguinal hernias or adenopathy. Bones: No suspicious bony lesions. No vertebral body compression fractures. Age-appropriate degene rative changes are seen. IMPRESSION: Moderate sigmoid diverticulitis. No shi findings of perforation or abscess can be seen. A colonoscopy is recommended for further evaluation, following treatment of the patient's current cli nical episode, for evaluation of a potential underlying mass. Additional findings: Subpleural bleb of the lingula Simple appearing left renal cyst Fat-containing periumbilical hernia Enlarged prostate. Reviewed by: Jadiel Rivas MD on 09/22/2022 1:19 PM AKST Approved by: Jadiel Rivas MD on 09/22/2022 1:19 PM ANNA Station ID: [id number]
[2022-09-22] MEDS ORDERED: AMOX/CLAV 875 MG/125 MG TABLET PO STA (14:29)
[2022-09-22] MEDS ORDERED: oxyCODONE 5 MG TABLET PO STA (14:29)
[2022-09-22 14:50] VITALS: BP 133/76
== END 2022-09-22 14:58 | disposition home or self-care (01) ==
LOC: ED 11:36
DX: K57.92 Diverticulitis of intestine, part unspecified, without perforation or abscess without bleeding (principal)
CPT/HCPCS: 36415; 74177; 80053; 81003; 83690; 85025; 99284; A9270; Q9967; 81001; 87086

== ENCOUNTER 2022-11-28 06:16 | Day surgery (SDC) | payer MEDICARE, OTHER ==
[2022-11-28] MEDS ORDERED: LACTATED RINGERS 1,000 ML IV ONE (06:26)
--- NOTE | 2022-11-28 07:28 | ANESTHESIA ---
Pre-Anesthesia VS, & Labs - Diagnosis screening - Procedure colonoscopy Vital Signs: Temp Pulse Resp BP Pulse Ox O2 Flow Rate 36.1 C L 59 L 15 126/77 98 11/28/22 06:45 11/28/22 06:45 11/28/22 06:45 11/28/22 06:45 11/28/22 06:45 Height: 6 ft 2 in Weight (kg): 98.6 kg Body Mass Index: 27.8 BMI Classification: Overweight - NPO >8 hours Home Medications and Allergies atenoloL [Atenolol] 50 mg PO DAILY 03/22/14 hydroCHLOROthiazide [Hydrochlorothiazide] 25 mg PO DAILY 03/22/14 Allergies/Adverse Reactions: Allergies Allergy/AdvReac Type Severity Reaction Status Date / Time No Known Drug Allergies Allergy Verified 11/27/22 14:44 Anes History & Medical History - Anesthetic History Anesthesia Complications: reports: No previous complications Family history of Anesthesia Complications: Denies Family history of Malignant Hyperthermia: Denies - Medical History Cardiovascular: reports: Hypertension, Other Pulmonary: reports: None Gastrointestinal: reports: None, Diverticulitis Urinary: reports: Benign prostate hypertrophy Musculoskeletal: reports: None Endocrine/Autoimmune: reports: None Skin: reports: None - Surgical History General: reports: Other Eyes Ears Nose Throat (EENT): reports: Other Exam General: Alert, Oriented x3, Cooperative Dental: WNL Mouth Openin Fingerbreadth Neck Mobility: Normal Mallampati classification: II Thyromental Distance: 4-6 cm Respiratory: Lungs clear Cardiovascular: Regular rate Plan Anesthesia Type: General, Total IV Consent for Procedure(s) Verified and Reviewed: Yes Code Status: Attempt Resuscitation ASA classification: 2-Mild systemic disease Is this case an emergency?: No
--- NOTE | 2022-11-28 07:29 | HISTORY & PHYSICAL EXAMINATION ---
Chief Complaint - Chief Complaint Chief Complaint: here for colon cancer screening History of Present Illness - History Obtained From Records Reviewed: yes History obtained from: pt Exam Limitations: none - History of Present Illness HPI Comment/Other: last colonoscopy in 2013. incomplete due to tolerance and prep. hyperpplastic polyp. no gi symptoms currently. feels well. History - Past Medical History Cardiovascular: reports: Hypertension, Other Respiratory: reports: None Endocrine/Autoimmune: reports: None GI: reports: None : reports: Benign prostate hypertrophy HEENT: reports: None Psych: reports: None Musculoskeletal: reports: None Derm: reports: None MRSA Hx?: No - Past Surgical History General: reports: Other HEENT: reports: Other Meds/Allgy - Home Medications Home Medications: Ambulatory Orders Medication Instructions Recorded Confirmed atenoloL [Atenolol] 50 mg PO DAILY 03/22/14 11/27/22 hydroCHLOROthiazide 25 mg PO DAILY 03/22/14 11/27/22 [Hydrochlorothiazide] - Allergies Allergies/Adverse Reactions: Allergies Allergy/AdvReac Type Severity Reaction Status Date / Time No Known Drug Allergies Allergy Verified 11/27/22 14:44 Review of Systems - Other Findings Other Findings: 10 pt ros as above otherwise unremarkable Exam - Vital Signs Reviewed Vital Signs: Yes Vital Signs: Vital Signs x48h Temp Pulse Resp BP Pulse Ox 11/28/22 06:45 36.1 C L 59 L 15 126/77 98 - Physical Exam General Appearance: positive: No acute distress, Alert Eyes Bilateral: positive: PERRL, EOMI ENT: positive: No signs of dehydration Neck: positive: No JVD Respiratory: positive: No respiratory distress, Breath sounds nml Cardiovascular: positive: Regular rate & rhythm Abdomen: positive: Non-tender, No distention Neurologic/Psychiatric: positive: Oriented x3 Conclusion/Plan - Problem List (1) Colon cancer screening Conclusion/Plan: plan colonoscopy. parq held and consent obtained
[2022-11-28] MEDS ORDERED: PROPOFOL 200 MG/20 ML VIAL IVP ONE (07:33)
[2022-11-28] MEDS ORDERED: PROPOFOL 500 MG/50 ML 500 MG/50 ML VIAL ONE (07:33)
[2022-11-28] MEDS ORDERED: LACTATED RINGERS 200 ML IV ONE (08:14)
[2022-11-28 08:34] VITALS: BP 120/87
--- NOTE | 2022-11-29 11:49 | ANESTHESIA POST OP EVALUATION ---
Anesthesia Post Eval - Post Anesthesia Eval Vitals: Last Vital Signs Temp 36.1 C L 11/28/22 08:33 Pulse 67 11/28/22 08:33 Resp 14 11/28/22 08:33 BP 120/87 H 11/28/22 08:33 Pulse Ox 97 11/28/22 08:33 O2 Flow Rate CV Function Including HR & BP: Stable Pain Control: Satisfactory Nausea & Vomiting: Negative Mental Status: Baseline Respiratory Status: Airway Patent Hydration Status: Satisfactory Anesthesia Complications: None
== END 2022-11-28 06:17 | disposition home or self-care (01) ==
LOC: SDS 06:16
PROVIDERS: ATTEND Surgery
DX: Z12.11 Encounter for screening for malignant neoplasm of colon (principal); K57.30 Diverticulosis of large intestine without perforation or abscess without bleeding; Z87.19 Personal history of other diseases of the digestive system
CPT/HCPCS: G0121; J7120

== ENCOUNTER 2023-09-08 11:02 | Outpatient (CLI) | payer MEDICARE, OTHER ==
[2023-09-08 15:52] LABS: PSA TOTAL 8.159 ng/mL (0.000-2.000)
== END 2023-09-08 11:03 | disposition home or self-care (01) ==
LOC: LAB.S 11:02
PROVIDERS: ATTEND Registered Nurse
DX: C61 Malignant neoplasm of prostate (principal)
CPT/HCPCS: 36415; 84153; 84154

== ENCOUNTER 2023-11-27 08:00 | Outpatient (CLI) | payer MEDICARE, OTHER ==
[~2023-11-27 08:00] MED LIST: GADOTERATE MEGLUMINE 10 MMOL/20 ML VIAL ONE; GADOTERATE MEGLUMINE 5 MMOL/10 ML VIAL ONE
[2023-11-27 08:25] LABS: CREATININE 0.8 mg/dL (0.6-1.3)
[2023-11-27] MEDS: GADOTERATE MEGLUMINE 10 MMOL/20 ML VIAL IVP ONE (09:59)
--- NOTE | 2023-11-27 11:48 | MRI Report ---
PROCEDURE: Pelvis W/WO INDICATIONS: PROSTATE CA CONTRAST: 20 mL Clariscan TECHNIQUE: Coronal ultra fast SE, axial T1 FSE with fat saturation, 3-plane nonbreath-hold T2 FSE. After the ad ministration of contrast, dynamic axial, delayed axial and coronal ultra fast GE or 2-D spoiled GE wi th fat saturation through the pelvis. Optional diffusion weighted imaging and ADC may be performed. COMPARISON: None. FINDINGS: Image quality: Diffusion weighted and dynamic contrast enhanced images are diagnostic. Prostate: Gland size is 6.7 x 8.0 x 5.3 cm; ellipsoid gland volume is 148 mL. Prostate lesions: Lesion 1: Location: Left posterior transition zone, mid gland, on axial series 5, image 18 and coronal series 6 , image 18. Size: 3.6 x 1.3 cm. T2W signal: Hypointense, nonencapsulated DWI signal: Markedly hyperintense ADC signal: Markedly hypointense Enhancement: Yes Extracapsular extension: No. No neurovascular involvement. PI-RADS score: 5 Genitourinary system: Bladder wall trabeculation with diverticula present. Bowel and peritoneum: No pathologic free pelvic fluid. Inferior colon and small bowel loops are nor mal in caliber. Colonic diverticulosis without evidence of diverticulitis. Nodes and vessels: No pelvic or inguinal adenopathy by size criteria. Iliac vessels are normal in c aliber. Soft tissues: No inguinal hernias. Bones: Bone marrow demonstrates normal overall signal. No suspicious bony lesions. IMPRESSION: PI-RADS 5 lesion in the left posterior transition zone of the mid gland. No extraprostatic extension. No pelvic adenopathy. No aggressive osseous abnormality. Reviewed by: Nathan Albarran MD on 11/27/2023 11:46 AM PST Approved by: Nathan Albarran MD on 11/27/2023 11:46 AM PST Station ID: [id number]
== END 2023-11-27 08:01 | disposition home or self-care (01) ==
LOC: LAB 08:00
PROVIDERS: ATTEND Urology
DX: C61 Malignant neoplasm of prostate (principal); N40.2 Nodular prostate without lower urinary tract symptoms
CPT/HCPCS: 36415; 72197; 82565; A9575

== ENCOUNTER 2023-12-30 08:03 | Day surgery (SDC) | payer MEDICARE, OTHER ==
[2023-12-30] MEDS: LACTATED RINGERS 1,000 ML IV ONE ×2 (08:08→10:21)
[2023-12-30] MEDS ORDERED: LIDOCAINE-MPF 1% 30 ML VIAL ONE (08:28)
--- NOTE | 2023-12-30 08:54 | ANESTHESIA ---
Pre-Anesthesia VS, & Labs - Diagnosis elevated psa - Procedure prostate biopsy Vital Signs: Temp Pulse Resp BP Pulse Ox O2 Flow Rate 36.5 C 70 17 138/91 H 98 12/30/23 08:15 12/30/23 08:15 12/30/23 08:15 12/30/23 08:15 12/30/23 08:15 Height: 6 ft 2 in Weight (kg): 103.4 kg Body Mass Index: 29.2 BMI Classification: Overweight - NPO >8 hours Home Medications and Allergies Home Medications: Ambulatory Orders Tamsulosin [Flomax] 0.4 mg PO DAILY 12/26/23 atenoloL [Atenolol] 50 mg PO DAILY 03/22/14 hydroCHLOROthiazide [Hydrochlorothiazide] 25 mg PO DAILY 03/22/14 Tamsulosin [Flomax] 0.4 mg PO DAILY 12/26/23 Allergies/Adverse Reactions: Allergies Allergy/AdvReac Type Severity Reaction Status Date / Time No Known Drug Allergies Allergy Verified 12/30/23 08:29 Anes History & Medical History - Anesthetic History Anesthesia Complications: reports: No previous complications Family history of Anesthesia Complications: Denies Family history of Malignant Hyperthermia: Denies - Medical History Cardiovascular: reports: Hypertension, Arrhythmia Pulmonary: reports: Asthma, Sleep apnea Gastrointestinal: reports: None Urinary: reports: Benign prostate hypertrophy, Other Musculoskeletal: reports: None Endocrine/Autoimmune: reports: None Skin: reports: None - Surgical History General: reports: Colonoscopy, Other Eyes Ears Nose Throat (EENT): reports: Other Exam General: Alert, Oriented x3, Cooperative Dental: WNL Mouth Openin Fingerbreadth Neck Mobility: Normal Mallampati classification: I Thyromental Distance: 4-6 cm Respiratory: Lungs clear Cardiovascular: Regular rate Plan Anesthesia Type: General, Total IV Consent for Procedure(s) Verified and Reviewed: Yes Code Status: Attempt Resuscitation ASA classification: 2-Mild systemic disease Is this case an emergency?: No
[2023-12-30] MEDS ORDERED: PROPOFOL 200 MG/20 ML VIAL IVP ONE ×2 (09:02→09:03)
[2023-12-30] MEDS ORDERED: LIDOCAINE-PF 2% 10 ML AMP SUBQ ONE (09:57)
[2023-12-30] MEDS: LIDOCAINE 1%-EPI 1:100000 30 ML MDV SUBQ ONE (10:10)
--- NOTE | 2023-12-30 10:25 | Discharge Plan ---
Discharge Plan Problem Reviewed?: Yes Disposition: Home, Self Care Condition: Good Diet: Regular Activity Restrictions: No Restrictions Shower Restrictions: No Driving Restrictions: No Instruction Topics: Biopsy Ultrasound Transrectal Additional Instructions or Follow Up instructions: You will be contacted for follow up in the next 2-[address] Mya No Smoking: If you smoke, Please STOP! Call for help. Follow-up with: Katie Alatorre ARNP [Primary Care Provider] - Kevin May MD [Provider Admit Priv/Credential] -
--- NOTE | 2023-12-30 10:33 | OPERATIVE REPORT ---
Operative Report - General Procedure Date: 12/30/23 Planned Procedure: Transrectal ultrasound-guided prostate biopsy Pre-Op Diagnosis: Elevated PSA Procedure Performed: Transrectal ultrasound-guided prostate biopsy Post Op Diagnosis: Elevated PSA - Procedure Note Primary Surgeon: Lalo Anesthesia Provider: TRINIDAD Reyes Anesthesia Technique: Moderate sedation Pathology: Routine prostate biopsy Findings: PIRADS 5 lesion in left TZ 148cc prostate Complications: none - Other Other Information/Narrative: After informed consent was obtained the patient was brought to the OR and laid in the supine position. The patient was then anesthetized per anesthesia protocols and placed in the left lower cubitus position with left side down. A timeout was performed reconfirming the patient, procedure and laterality. A transrectal ultrasound-guided probe was placed per rectum and his prostate was visualized. 5 cc 1% lidocaine was placed at the lateral aspect of the prostate bilaterally. The prostate volume was measured at 148 cc Using 18-gauge biopsy needle we obtained samples of the prostate from the right and left side, the lateral and medial aspects of the base, mid and apex. These were sent for analysis separately. An extra sample was taken for the left lateral mid and left mid gland in order to target the PIRADS 5 TZ lesion. Therefore a total of 14 samples in 12 specimen cups were sent. The probe was slowly removed and no bleeding was identified. The patient tolerated procedure well and was brought to the PACU without further incident. He will follow-up in a few weeks time for pathology discussion
[2023-12-30 11:04] VITALS: BP 120/92; O2SAT 97
--- NOTE | 2023-12-30 19:01 | ANESTHESIA POST OP EVALUATION ---
Anesthesia Post Eval - Post Anesthesia Eval Vitals: Last Vital Signs Temp 36.3 C L 12/30/23 10:40 Pulse 57 L 12/30/23 10:50 Resp 13 12/30/23 10:50 BP 120/92 H 12/30/23 10:50 Pulse Ox 97 12/30/23 10:50 O2 Flow Rate CV Function Including HR & BP: Stable Pain Control: Satisfactory Nausea & Vomiting: Negative Mental Status: Baseline Respiratory Status: Airway Patent Hydration Status: Satisfactory Anesthesia Complications: None
== END 2023-12-30 08:04 | disposition home or self-care (01) ==
LOC: SDS 08:03
PROVIDERS: ATTEND Urology
PROC: 0VJ43ZZ Inspection of Prostate and Seminal Vesicles, Percutaneous Approach (ICD-10-PCS; principal; 2023-12-30 09:15)
DX: R97.20 Elevated prostate specific antigen [PSA] (principal); I10 Essential (primary) hypertension; J45.909 Unspecified asthma, uncomplicated; G47.30 Sleep apnea, unspecified
CPT/HCPCS: 55700; J7120

== ENCOUNTER 2024-05-12 08:00 | Outpatient (CLI) | payer MEDICARE, OTHER ==
--- NOTE | 2024-05-13 22:41 | XRAY Report ---
PROCEDURE: Hip w/Pelvis 2-3V RT INDICATIONS: RIGHT HIP PAIN TECHNIQUE: 3 views of the hip were acquired. COMPARISON: None. FINDINGS: Bones: Moderate bilateral acetabular joint space narrowing. Normal bone mineralization. Pelvic ring intact. Soft tissues: No suspicious soft tissue calcifications or masses. IMPRESSION: Moderate bilateral joint space narrowing Reviewed by: Steven Geller MD on 05/13/2024 9:40 PM [facility]DT Approved by: Steven Geller MD on 05/13/2024 9:40 PM AKDT Station ID: [id number]
== END 2024-05-12 23:59 | disposition home or self-care (01) ==
LOC: DI.S 08:00
PROVIDERS: ATTEND Physician Assistant
DX: M25.551 Pain in right hip (principal); M25.852 Other specified joint disorders, left hip; M25.851 Other specified joint disorders, right hip